=== PATIENT | male | born 1940 | race Caucasian/White ===

== ENCOUNTER 2016-06-04 09:14 | Inpatient (IN) | payer MEDICARE ==
[~2016-06-04] VITALS: Ht 188 cm; Wt 73.6 kg
[2016-06-04] VITALS (7 sets, daily range): BP systolic 103–126; BP diastolic 48–80
--- NOTE | ~2016-06-04 | PR ---
[place], [place] PROGRESS NOTE NAME: ASHLEE REINOSO JR UNIT #: [id number] ROOM: 519 DOCTOR: GIDEON PLASENCIA MD BIRTHDATE: [birth year] DOS: 06/06/2016 PULMONARY PROGRESS NOTE SUBJECTIVE: He has been noted comfortable at this time. He has been assessed by the Cardiology Services and his AICD has been interrogated. From the respiratory standpoint, the patient has not been noted with any symptoms of chest pain or any abdominal pain. OBJECTIVE: VITAL SIGNS: For the patient which has been recorded shows the temperature of the patient noted as normal, respiratory rate 20, heart rate 68 and blood pressure 128/81. HEENT: Showed no acute change. NECK: Supple. CARDIOVASCULAR: S1, S2 is audible. LUNGS: Noted without any wheezing or crackles at the present time. ABDOMEN: Soft, nontender. LABORATORY DATA: Blood culture from the 2nd of this month for this patient from the Emergency Room showed no bacterial growth. Urine culture of the patient was reported with findings of Citrobacter freundii heavy growth. IMPRESSION: 1. Incidental finding of pulmonary nodule which has been present noncalcified in the right lower lobe for this patient as well as discoid atelectasis for the patient in the right minor fissure as well. Possibility of malignancy has been considered as well. 2. The patient with history of cardiomyopathy, automatic implantable cardioverter-defibrillator in place with recent discharge, being interrogated by the Cardiology Services. PLAN OF TREATMENT: Continuation of the patient's current plan of management at this time without any changes. Usual care. Supportive therapy as a plan of care. [place], [place] PROGRESS NOTE NAME: ASHLEE REINOSO JR UNIT #: [id number] ROOM: 519 DOCTOR: GIDEON PLASENCIA MD BIRTHDATE: [birth year] GIDEON THURMAN MD CM:PNTRANS [id number] GIDEON JIMENEZ MD 06/06/16 1425 interface
--- NOTE | ~2016-06-04 | CON ---
[place], [place] REPORT OF CONSULTATION NAME: ASHLEE REINOSO JR [facility] #: [id number] UNIT #: [id number] ROOM: 519 DOCTOR: GIDEON PLASENCIA MD BIRTHDATE: [birth year] DOS: 06/05/2016 PULMONARY CONSULTATION, EVALUATION AND MANAGEMENT REASON FOR CONSULTATION: The consultation was done for assessment of the recent findings noted with abnormal pulmonary nodule in the CT scan of the chest on this hospitalization. HISTORY OF PRESENT ILLNESS: This is a 76-year-old white male who has been admitted to the hospital under the hospice care for this patient on 06/04/2016. The patient stated that he had been noted discharge from the AICD at home in the morning prior to admission to the hospital. He has been feeling ill at this time. The patient denies any symptoms of chest pain. Denies symptoms of acute shortness of breath. The patient denies symptoms of hemoptysis. He does have symptoms of nausea and chills, which occurred yesterday as well. REVIEW OF SYSTEMS: CONSTITUTIONAL: Fatigue and tiredness seemed to be improved. There were no symptoms of fever or chills at this time. EYES: Denies any burning, redness, or tenderness. EARS, NOSE, THROAT: Denies sore throat, hoarseness, otalgia, postnasal drainage. CARDIOVASCULAR SYSTEM: Denies anginal pain, edema or pain of the lower extremities or palpitation at the present time. GASTROINTESTINAL: Denies dysphagia, nausea, vomiting, diarrhea, abdominal pain, hematemesis, melena, dysphagia or any abnormal weight loss history. GENITOURINARY: Denies dysuria, suprapubic pain, hematuria. MUSCULOSKELETAL: Denies acute joint pain, redness, or tenderness. SKIN: Denies lesions or rashes. CENTRAL NERVOUS SYSTEM: Denies dizziness, headache, diplopia or syncopal episodes. Remaining systems were reviewed with the patient, they were noted all negative. PAST MEDICAL HISTORY: 1. The patient was noted with previous hospitalization in December 2015 for the management of the chest pain, acute kidney injury for the patient with acute tubular necrosis and other medical problems. 2. History of known cardiac dysrhythmias, the patient AICD in place. 3. History of centrilobular emphysema. 4. Chronic atrial fibrillation. 5. Past history of hemorrhagic cystitis. 6. Essential hypertension. 7. Hyperlipidemia and hypertriglyceridemia. 8. Hypothyroidism. PAST SURGICAL HISTORY: The patient noted: 1. AICD insertion. 2. Hernia repair. [place], [place] REPORT OF CONSULTATION NAME: ASHLEE REINOSO JR [facility] #: [id number] UNIT #: [id number] ROOM: [facility] DOCTOR: GIDEON PLASENCIA MD BIRTHDATE: [birth year] SOCIAL HISTORY: The patient stated that he is . He was a nonsmoker lifetime, worked in for 25 years. The patient is and has 2 children. Denies history of alcohol or illicit drug use. FAMILY HISTORY: The patient was reported as father at the age of 60-year-old, complication of COPD. Mother at age 60-year-old from complication of unknown cancer. MEDICATIONS: Current administered medications noted use of multivitamin, Lovenox for DVT prophylaxis, Synthroid, Protonix, metoprolol succinate, Lipitor, finasteride, Flomax, magnesium oxide, IV Rocephin, and other p.r.n. medication administration. DRUG ALLERGIES: Noted no known drug allergies. PHYSICAL EXAMINATION: GENERAL: This is a 76-year-old male who has been currently noted to be awake and alert without any distress. Height of 6 feet 2 inches, weight of 162 pounds. VITAL SIGNS: For the patient which has been recorded showed the temperature noted normal, respirations 20, heart rate of 73, blood pressure is 120/76-113/70. The pulse oxygen saturation for the patient recorded as saturation 97% on room air was recorded. HEENT: Shows head was atraumatic. Eyes: No icterus. Neck was supple. Oral mucosa was moist. CARDIOVASCULAR SYSTEM: S1, S2 is audible. LUNGS: The patient was noted clear for any abnormal wheezing or crackles. The air entry was noted normal. ABDOMEN: Soft, flat, nontender, bowel sounds present. CENTRAL NERVOUS SYSTEM: The patient's cranial nerves 2-12 intact. No focal deficit. MUSCULOSKELETAL: Does not show any acute deformities. SKIN: Showed no lesions or rashes. CENTRAL NERVOUS SYSTEM: Cranial nerves 2-12 intact. No focal deficits. LABORATORY DATA: Lactic acid yesterday was noted normal on admission. CBC on the day of admission was noted as grossly normal. The PT/INR was noted normal at 1.1 yesterday. CMP of patient 06/04/2016 for the patient admission shows glucose 120, BUN and creatinine was normal. AST and ALT was mildly elevated with mild elevation of total bilirubin is 1.2 and alkaline phosphatase of 164. CK-MB, troponin additional 3 sets for the patient was done yesterday and this morning was all noted as normal. CBC this morning, hemoglobin 11.4, hematocrit 34.9, WBC count was noted normal, platelet count mildly decreased at 129,000. CMP of the patient this morning normal BUN and creatinine and the electrolytes for this patient at this time. The liver function tests were also noted improving with normal ALT today. AST was decreased to 47, alkaline phosphatase also decreased to 135. TSH level was noted as normal. The PT, PTT for the patient this morning was noted as normal. RADIOLOGY DATA: Review of the radiology data for this patient. The chest x-ray [place], [place] REPORT OF CONSULTATION NAME: [facility] [id number] UNIT #: [id number] ROOM: [facility] DOCTOR: CUCA [facility]Z [facility] B[facility] [birth year] of the patient that was reviewed for the patient done on 01/26/2016 only 1 view taken for this patient at the time does not appear to have any acute pulmonary abnormalities. Small giuseppe normal in the left upper lung was noted. The chest x-ray of the patient that was done on 06/04/2016 patient yesterday in the Emergency Room with 1 view done at that time, it shows evidence of irregular infiltration of the patient was suspected in the right mid lung for this patient with some pleural thickening. The patient had a CT scan of the chest, which was done without contrast for this patient on 06/04/2016, patient was personally reviewed as well shows noncalcified 2.5 x 1.4 cm nodule for the patient was visible. Evidence of possibility of discoid atelectasis or consolidation for the patient in the right minor fissure patient was also considered that corresponds to the previous findings on the chest x-ray which was done recently. IMPRESSION: 1. The patient will be currently admitted to the hospital with a discharge of the AICD for this patient with history of cardiac dysrhythmias yesterday. Acute generalized weakness and nausea the patient noted seemed to be resolved at this time. There were no ongoing acute respiratory symptoms of coughing, wheezing or chest pain. The patient was noted nonsmoker lifetime. 2. Incidental finding of pulmonary nodule the patient's right lower lobe 2 cm x 1.4 cm in size for this patient, etiology unclear. Certainly consideration of lung malignancy with further assessment to be conducted. 3. Finding of the right mid lung. The patient may be related to the area of atelectasis; however, malignancy, other etiology also remains in consideration as well with further future assessment. PLAN OF TREATMENT: From the pulmonary standpoint, once the patient gets the cardiac clearance could be discharged home to make an appointment in the office. The patient for further diagnostic workup with current pulmonary nodule. Initial assessment will be done with a PET scan for the patient based on that further assessment and intervention will be planned such as needle aspiration biopsy with CT guidance or other interventions. Usual care, other supportive therapy, plan of management and care. Continue further cardiac assessment and management. Supportive care. Usual treatment. Thanks for allowing me to participate in the care of this patient. GIDEON THURMAN MD CM:CONSTR:REPORT OF CONSULTATION 1112 06/05/16 1303 interface
--- NOTE | ~2016-06-04 | CON ---
[place], [place] REPORT OF CONSULTATION NAME[id number] #: [id number] ROOM: 519 DOCTOR: GALO WILLISYUMIKO BIRTHDATE: [birth year] DOS: 06/04/2016 CARDIOLOGY CONSULTATION REASON FOR CONSULTATION: ICD discharge and cardiomyopathy. CLINICAL HISTORY: The patient is a 76-year-old gentleman with history of nonischemic cardiomyopathy status post ICD, valvular heart disease, chronic kidney disease, came to the Emergency Room after his defibrillator went off. He was noted to have some shortness of breath in the morning and around 07:40, his defibrillator went off, but he did have some chest pain after defibrillator shocked him, but no exertional chest pain, palpitation, or dizziness. He did have some exertional dyspnea. No PND, no orthopnea. No edema. No syncope. No fever and chills. No cough. No tingling, numbness or weakness. No blurred vision or double vision. No nausea. REVIEW OF SYSTEMS: Review of the 8 systems negative except as mentioned above. PAST MEDICAL HISTORY: 1. Cardiomyopathy. 2. Status post ICD. 3. Valvular heart disease. 4. LV hypertrophy. 5. Anemia. PAST SURGICAL HISTORY: History of ICD implant and hernia repair. SOCIAL HISTORY: The patient does drink alcohol socially, but no illicit drugs, no tobacco smoking. FAMILY HISTORY: Father in his 60s from COPD. Mother in her 60s from cancer. ALLERGIES: Noted. HOME MEDICATIONS AND CURRENT MEDICATIONS: Noted. PHYSICAL EXAMINATION: VITAL SIGNS: Blood pressure 103/65, pulse 87, respiratory rate is 20. GENERAL: Alert, comfortable, in no acute distress. HEAD AND NECK: Pupils are round and equal. No jaundice. Tongue was moist and pharynx was clear. NECK: Supple, no distended neck veins, no carotid bruit. CHEST: Chest wall symmetrical, nontender. LUNGS: Few scattered rhonchi, but good air entry bilaterally. HEART: Regular rhythm, no S3, grade 1/6 systolic murmur. ABDOMEN: Benign, nontender. Bowel sounds normal. EXTREMITIES: Showed no edema. Distal pulses are palpable. SKIN: Warm and dry. No cyanosis, no clubbing. [place], [place] REPORT OF CONSULTATION NAME: ASHLEE REINOSO JR [facility] #: [id number] UNIT #: [id number] ROOM: [facility] DOCTOR: GALO WILLIS,YUMIKO BIRTHDATE: [birth year] REVIEW OF THE DIAGNOSTIC TESTS: EKG showed sinus tachycardia with PACs. His labs reviewed. Potassium 4.0, magnesium 2.1. Hemoglobin 11.8. Creatinine 1.19. TSH 1.18. IMPRESSION: 1. Status post ICD discharge. 2. Severe left ventricular dysfunction, ejection fraction 25%. 3. Status post ICD implant, [employer] in September 2015. 4. Valvular heart disease, tricuspid regurgitation. 5. Mild anemia. RECOMMENDATIONS: 1. He denied any chest pain or shortness of breath. 2. Continue his metoprolol as well as statins. 3. If his blood pressure is stable, I would recommend adding either Entresto or JACQUE medications. 4. His potassium and magnesium levels are normal. 5. Interrogate his ICD to make it was discharged appropriately. 6. Continue rest of his medications. 7. If he has no further ICD discharges and if he is stable, he should be discharged home tomorrow. YUMIKO ROSENTHAL MD CM:CONSTR:REPORT OF CONSULTATION 2145 06/05/16 0025 interface
[~2016-06-04 09:14] MED LIST: 8 HOUR650 MG PO; ASPIRIN81 M1 PO; ATENOLOL50 MG PO; ATHLETIC FOOT C30 GM TP; BACTROBAN OINT22 GM PO; BIOTENE MOIST44.3 ML PO; CALCIUM1 CAP PO; DOXYCYCLINE100 M3 PO; ELIQUIS5 M1 PO; FEROSUL220 MG/51 PO; FLOMAX0.4 MG PO; KLOR-CON 1010 ME1 PO; LASIX40 MG PO; LEVOFLOXACIN500 MG PO; LIPITOR40 MG PO; LISINOPRIL5 MG PO; MAGNESIUM400 MG PO; METOPROLOL SUCC50 M1 PO; MEXILETINE HCL200 MG PO; MOTRIN800 MG PO; MULTI-DAY VITA1 EACH PO; MULTIPLE VITAMI1 CAP PO; MYLICON, MYLANT80 MG PO; PACERONE200 MG PO; PACERONE400 MG PO; PROSCAR5 M1 PO; PROTONIX IV40 MG PO; RANITIDINE300 MG PO; SYNTHROID,LEVO75 MCG PO; TOPROL XL100 MG PO; VICODIN 500 MG-1 TAB PO; ZANTAC 150150 MG PO; ZANTAC 300300 MG PO
[2016-06-04] MEDS ORDERED: METOPROLOL SUC100 M1 PO (09:25)
[2016-06-04 09:50] LABS: BASO % 0.1 % (0.0-1.0); HEMATOCRIT 39.9 % (42.0-52.0); HEMOGLOBIN 13.1 g/dl (14.0-18.0); LYMPH # 0.9 10*3/uL (1.3-4.4); LYMPH % 11.7 % (27.0-41.0); MEAN CELL VOLUME 85.1 fl (80.0-94.0); MEAN CORPUSCULAR HGB 27.9 pg (27.0-31.0); MEAN CORPUSCULAR HGB CONC 32.8 g/dl (33.0-37.0); MEAN PLATELET VOLUME 9.8 fl (9.6-12.3); MONO # 0.5 10*3/uL (0.1-1.0); MONO % 6.8 % (3.0-9.0); NEUT # 6.2 10*3/uL (2.3-7.9); NEUT % 81.1 % (47.0-73.0); PLATELET COUNT AUTOMATED 161 10*3/uL (130-400); RED BLOOD COUNT 4.69 10*6/uL (4.50-5.90); WHITE BLOOD COUNT 7.6 10*3/uL (4.8-10.8)
[2016-06-04 09:58] LABS: INTERNATIONAL NORM RATIO 1.1 (2.0-3.5); PROTHROMBIN TIME 11.2 SECONDS (9.0-12.4)
[2016-06-04 10:07] LABS: ALBUMIN 3.3 gm/dl (3.1-4.5); ALKALINE PHOSPHATASE 164 U/L (45-117); BILIRUBIN, TOTAL 1.2 mg/dl (0.2-1.0); BUN 24 mg/dl (7-24); CARBON DIOXIDE 26 mmol/L (21-32); CHLORIDE 104 mmol/L (98-107); EST GLOM FILT AFRICAN AMERICAN > 60 ml/min; GLUCOSE 120 mg/dL (65-99); MAGNESIUM 1.7 mg/dL (1.5-2.1); POTASSIUM 3.9 mmol/L (3.5-5.1); SGOT/AST 66 IU/L (3-35); SGPT/ALT 94 U/L (12-78); SODIUM 139 mmol/L (136-145); TOTAL PROTEIN 8.5 gm/dL (6.4-8.2)
[2016-06-04 10:08] LABS: TROPONIN I < 0.015 ng/ml (<0.045)
[2016-06-04 11:08] LABS: BILIRUBIN NEGATIVE (NEGATIVE); BLOOD 2+ (NEGATIVE); CLARITY SL CLOUDY (CLEAR); COLOR YELLOW (YELLOW); GLUCOSE NEGATIVE (NEGATIVE); KETONE TRACE (NEGATIVE); LEUKO ESTERASE 1+ (NEGATIVE); NITRITE POSITIVE (NEGATIVE); PROTEIN NEGATIVE (NEGATIVE); SPECIFIC GRAVITY 1.025 (1.005-1.030)
[2016-06-04 11:14] LABS: BACTERIA 3+; RBC 21-30 rbc/hpf (0-2); URINE REFLEX COMMENT YES (NO); WBC 41-50 wbc/hpf (0-5)
[2016-06-04 12:21] LABS: CKMB 0.7 ng/ml (0.5-3.6); TROPONIN I 0.015 ng/ml (<0.045)
[2016-06-04 18:03] LABS: CKMB 0.6 ng/ml (0.5-3.6); CPK 37 U/L (39-308)
[2016-06-04 18:07] LABS: TROPONIN I < 0.015 ng/ml (<0.045)
[2016-06-05] VITALS: BP 113/70
[2016-06-05 00:44] LABS: CKMB < 0.5 ng/ml (0.5-3.6); CPK 40 U/L (39-308); TROPONIN I < 0.015 ng/ml (<0.045)
[2016-06-05 05:57] LABS: BASO % 0.2 % (0.0-1.0); EOS % 0.4 % (1.0-4.0); HEMATOCRIT 34.9 % (42.0-52.0); HEMOGLOBIN 11.4 g/dl (14.0-18.0); LYMPH # 1.9 10*3/uL (1.3-4.4); LYMPH % 33.8 % (27.0-41.0); MEAN CELL VOLUME 86.2 fl (80.0-94.0); MEAN CORPUSCULAR HGB 28.1 pg (27.0-31.0); MEAN CORPUSCULAR HGB CONC 32.7 g/dl (33.0-37.0); MEAN PLATELET VOLUME 9.7 fl (9.6-12.3); MONO # 0.8 10*3/uL (0.1-1.0); NEUT # 2.9 10*3/uL (2.3-7.9); NEUT % 51.4 % (47.0-73.0); PLATELET COUNT AUTOMATED 129 10*3/uL (130-400); RED BLOOD COUNT 4.05 10*6/uL (4.50-5.90); RED CELL DISTRI WIDTH 15.3 % (0-14.5); WHITE BLOOD COUNT 5.6 10*3/uL (4.8-10.8)
[2016-06-05 06:29] LABS: ALBUMIN 2.8 gm/dl (3.1-4.5); ALKALINE PHOSPHATASE 135 U/L (45-117); BILIRUBIN, TOTAL 0.8 mg/dl (0.2-1.0); BUN 22 mg/dl (7-24); CARBON DIOXIDE 29 mmol/L (21-32); CHLORIDE 105 mmol/L (98-107); CHOLESTEROL 85 mg/dL (<200); EST GLOM FILT AFRICAN AMERICAN > 60 ml/min; GLUCOSE 91 mg/dL (65-99); MAGNESIUM 1.9 mg/dL (1.5-2.1); PHOSPHOROUS 2.8 mg/dL (2.5-4.9); POTASSIUM 3.9 mmol/L (3.5-5.1); SGOT/AST 47 IU/L (3-35); SGPT/ALT 70 U/L (12-78); SODIUM 141 mmol/L (136-145); TOTAL PROTEIN 7.3 gm/dL (6.4-8.2); TRIGLYCERIDES 69 mg/dl (<150); VLDL CHOLESTEROL 14 mg/dL (6-40)
[2016-06-05 06:35] LABS: FREE T4 1.22 ng/dl (0.76-1.46); HDL CHOLESTEROL 34 mg/dl (40-60); LDL CHOLESTEROL 37 mg/dL (9-159)
[2016-06-05 06:40] LABS: INTERNATIONAL NORM RATIO 1.1 (2.0-3.5); PROTHROMBIN TIME 11.4 SECONDS (9.0-12.4)
[2016-06-05 07:15] LABS: HEMOGLOBIN A1c 4.6 % (4.8-5.6)
[2016-06-05 07:20] LABS: FOLIC ACID 8.24 ng/mL (>5.38)
[2016-06-05 08:00] VITALS: BP 120/76
[2016-06-05 12:00] VITALS: BP 101/68
[2016-06-05 16:00] VITALS: BP 108/72
[2016-06-05 20:00] VITALS: BP 120/76
[2016-06-06] VITALS: BP 128/80
[2016-06-06 08:00] VITALS: BP 128/81
[2016-06-06 12:00] VITALS: BP 122/65
[2016-06-06] MEDS ORDERED: ASPIRIN ADULT L81 M2 PO (13:36)
[2016-06-06] MEDS ORDERED: LISINOPRIL2.5 MG PO (13:36)
[2016-06-06] MEDS ORDERED: CIPRO500 MG PO (13:38)
== END 2016-06-06 15:09 | disposition home or self-care (01) | DRG 690 ==
LOC: ED 09:14 → EDHOLD 10:54 → 5E 10:54
PROVIDERS: Family Medicine; Nurse Practitioner Family
DX: N30.01 Acute cystitis with hematuria (principal); J44.9 Chronic obstructive pulmonary disease, unspecified; I48.0 Paroxysmal atrial fibrillation; R06.00 Dyspnea, unspecified; E44.1 Mild protein-calorie malnutrition; I07.1 Rheumatic tricuspid insufficiency; R00.0 Tachycardia, unspecified; N18.3 Chronic kidney disease, stage 3 (moderate); R91.8 Other nonspecific abnormal finding of lung field; I12.9 Hypertensive chronic kidney disease with stage 1 through stage 4 chronic kidney disease, or unspecified chronic kidney disease; E78.1 Pure hyperglyceridemia; E78.5 Hyperlipidemia, unspecified; K21.9 Gastro-esophageal reflux disease without esophagitis; Z95.810 Presence of automatic (implantable) cardiac defibrillator; Z82.5 Family history of asthma and other chronic lower respiratory diseases; Z91.14 Patient's other noncompliance with medication regimen; Z80.9 Family history of malignant neoplasm, unspecified; Z82.49 Family history of ischemic heart disease and other diseases of the circulatory system; Z79.899 Other long term (current) drug therapy; Z68.20 Body mass index [BMI] 20.0-20.9, adult

== ENCOUNTER 2016-06-13 17:05 | Inpatient (IN) | payer MEDICARE ==
[~2016-06-13] VITALS: Ht 188 cm; Wt 89.4 kg
--- NOTE | ~2016-06-13 | PR ---
[place], [place] PROGRESS NOTE NAME: ASHLEE REINOSO JR UNIT #: [id number] ROOM: 530 DOCTOR: GIDEON PLASENCIA MD BIRTHDATE: [birth year] DOS: 06/16/2016 PULMONARY PROGRESS NOTE SUBJECTIVE: He has been noted with gradual resolution and improvement in the symptoms of chest pain on the left side. The patient has been noted with mild cough without any sputum expectoration. Denies symptoms of hemoptysis. OBJECTIVE: VITAL SIGNS: For the patient which have been recorded showed the temperature noted normal, respiratory rate 18, heart rate 65, blood pressure 122/72. Intake for the patient was 1700 mL, output 2250 mL. Pulse oxygen saturation on room air was noted as 98% saturation. HEENT: Examination shows no acute change. NECK: Supple. CARDIOVASCULAR: S1, S2 audible. LUNGS: Noted without any wheezing. The crackles noted with decreased breath sounds in left lower lung. ABDOMEN: Soft, nontender. LABORATORY DATA: Blood culture from 06/04/2016 was described as budding yeast for the patient. Final identification was described as Abril glabrata for this patient in the first one and the other blood culture was noted as Streptococcus salivarius as well. The urine culture of the patient was noted as evidence of Enterococcus, noted penicillin sensitive species. Chest x-ray of the patient that was done yesterday was noted with evidence of infiltration and consolidation noted in the left lower lobe. IMPRESSION: 1. The patient with incidental finding of right lower lobe pulmonary nodule, currently admitted to the hospital, being treated for acute pneumonia. 2. Isolation of gram-positive organisms as well as budding yeast were noted with past cultures on previous hospitalization from 06/04/2016. At this time, significance was unknown. PLAN OF TREATMENT: Continue current medical management of acute pneumonia. Consider consultation from Infectious Disease specialist and their recommendation, possibility of medical management of Abril glabrata as it has been isolated in the blood, would not be considered contamination. Other supportive therapy, plan of management, usual care. All other supportive plan of therapy and care plan. [place], [place] PROGRESS NOTE NAME: ASHLEE REINOSO JR UNIT #: [id number] ROOM: 530 DOCTOR: GIDEON PLASENCIA MD BIRTHDATE: [birth year] GIDEON THURMAN MD CM:MICHEL 09 2 GIDEON JIMENEZ MD 06/17/164 interface
--- NOTE | ~2016-06-13 | PR ---
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 The patient did have an ICD placed after presenting with syncopal episodes of paroxysmal atrial fibrillation and ventricular tachycardia in September 2015. At that time, he was treated with amiodarone, mexiletine, and Eliquis for arrhythmia prophylaxis and stroke prophylaxis. He was lost to follow up and stopped taking the amiodarone, mexiletine and Eliquis. He presented to the hospital on this occasion with left-sided chest pain, which is most likely due to a community-acquired pneumonia. On this hospitalization, his echocardiogram does show a significant improvement in his left ventricular function. His ejection fraction is now 65% with normal segmental wall motion. PHYSICAL EXAMINATION: VITAL SIGNS: Today, his pulse is 66 and regular, blood pressure is 122/72. He is afebrile. NECK: Supple. He has no jugular distention. Carotids are full. LUNGS: Respirations are unlabored. He has decreased breath sounds and crackles at the left base, but his lungs are otherwise clear. HEART: Has a regular rhythm with an S4 gallop. ABDOMEN: Soft. EXTREMITIES: Showed no edema. His rhythms have stabilized since being placed back on amiodarone and he shows no signs of heart failure. I did increase his JACQUE inhibitor to help with his guideline directed medical therapies. From a cardiac perspective, he probably could go home on his current medical regimen at any time. I did decrease his amiodarone to 200 mg b.i.d. and in a month this will need to be decreased once more to 200 mg daily. He certainly needs follow up with his quality control analyst in [place]. I thank the hospitalist service for asking our advice regarding the patient's care. [place], [place] PROGRESS NOTE NAME: RENCAILIN ASHLEE WHITTEN UNIT #: [id number] ROOM: 530 DOCTOR: DARLIN SALES MD BIRTHDATE: [birth year] DARLIN SALES MD CM:PNTRANS 9 02 DARLIN SALES MD 06/16/16 2304 interface
--- NOTE | ~2016-06-13 | CON ---
[place], [place] REPORT OF CONSULTATION NAME: ASHLEE REINOSO JR [facility] #: [id number] UNIT #: [id number] ROOM: 530 DOCTOR: DARLIN SALES MD BIRTHDATE: [birth year] DOS: 06/14/2016 CARDIOLOGY CONSULTATION The patient was seen. REASON FOR CONSULTATION: Left chest pain, frequent PVCs, dilated cardiomyopathy. HISTORY OF PRESENT ILLNESS: The patient is a 76-year-old man who I initially met when he presented to the hospital in September 2015 with syncopal episodes. While in the hospital, he was found to have atrial fibrillation with a rapid ventricular response as well as periods of monomorphic ventricular tachycardia. He was transferred to the [facility] where cardiac catheterization showed normal coronary arteries and an ejection fraction of 15%. He was felt to have a dilated nonischemic cardiomyopathy. His rhythms were very difficult to control despite lidocaine, diltiazem, beta jamar, amiodarone, and mexiletine. He eventually did receive an ICD and was discharged to home on amiodarone and mexiletine. He was seen in followup by Dr. Alexandra on one occasion and by Dr. Saucedo on one occasion, but was lost to follow up after 11/16/2015. At that time, the patient was on amiodarone, mexiletine, and Eliquis for stroke prophylaxis. He was next seen when he was hospitalized at the [facility] early June 2016 with an ICD discharge. At the time of that admission, he was no longer on amiodarone, mexiletine, or anticoagulation therapy as best I can tell. He was stabilized and discharged for outpatient followup, but presents now with left-sided chest pain and possible pneumonia. The patient does not think that his ICD has discharged again, although the monitor does show that he has very frequent PVCs. His underlying rhythm remains sinus. An echocardiogram done on 10/14/2015 showed a severely enlarged left ventricle with an ejection fraction of about 25%. ICD interrogation did show multiple episodes of antitachycardia pacing and occasional ICD discharges. Currently, the patient feels well, but did have left-sided chest pain prior to admission, which appears to have been due to a pulmonary infection. PAST MEDICAL HISTORY: 1. Hyperlipidemia. 2. Hypertension. 3. Gastroesophageal reflux disease. 4. History of obstructive lung disease due to occupational pulmonary exposure when he worked in the [employer]. 5. Hospitalization December 2014 with near syncope, felt to be due to dehydration. No further workup was done at that time. 6. Hospitalization 09/03/2015 with lightheadedness and multiple syncopal episodes along with peripheral edema. The patient was found to have new onset atrial fibrillation. 7. History of wide complex tachycardia during hospitalization September 2015 due to monomorphic ventricular tachycardia. 8. Evaluation at [facility] in [place] including catheterization demonstrated no coronary artery disease, but a dilated hypokinetic left [place], [place] REPORT OF CONSULTATION NAME: ASHLEE REINOSO JR UNIT #: [id number] ROOM: [facility] DOCTOR: DARLIN SALES MD BIRTHDATE: [birth year] ventricle with an ejection fraction of about 15%. The patient was felt to have a nonischemic cardiomyopathy. Catheterization done 09/07/2015. 9. Placement of dual chamber Medtronic ICD during hospitalization September 2015. 10. Medical noncompliance. MEDICATIONS: Prior to the current admission: Aspirin 81 mg daily, atorvastatin 40 mg h.s., finasteride 5 mg at h.s., levothyroxine 75 mcg daily, lisinopril 2.5 mg daily, magnesium oxide 400 mg b.i.d., metoprolol succinate 100 mg b.i.d., multivitamin 1 daily, ranitidine 150 mg b.i.d. and tamsulosin 0.8 mg at h.s. ALLERGIES: THE PATIENT LISTS AN ALLERGY TO CIPROFLOXACIN. REVIEW OF SYSTEMS: The patient denies diplopia or loss of vision. He denies focal weakness, but has been tired. He has not had any recent syncopal episodes. He does have dyspnea with modest exertion. He denies cough, wheezing, fevers or chills today, but did have a fever last night. He did have left-sided pleuritic chest pain, which has improved in the last 24 hours. He denies hemoptysis or hematemesis. He denies nausea or vomiting or change in his appetite. He denies blood in his stools or urine. He has not had any peripheral edema or skin rashes. The remainder of the review of systems is negative except as noted above. FAMILY HISTORY: Negative for early coronary disease. SOCIAL HISTORY: The patient is . He does not smoke or consume any alcohol. He is retired from the [employer]. PHYSICAL EXAMINATION: GENERAL: The patient is a well-nourished white male who is awake, alert and oriented. VITAL SIGNS: Pulse is 88 with frequent premature ventricular contractions. Blood pressure is 104/56. He weighs 89.4 kilograms with a body mass index of 25.3. HEENT: Normocephalic, atraumatic. Extraocular muscles are intact. Sclerae are clear. Pupils are equal, round and react to light. The oral mucosa is moist. Tongue is midline. NECK: Supple. He has mild jugular distention with mild hepatojugular reflux. Carotids are full. I heard no bruits. He had no neck or supraclavicular masses. No thyromegaly. LUNGS: Respirations are unlabored at rest. He has decreased breath sounds at the bases, but no wheezes or rales. He does have a few crackles at the left base. CARDIOVASCULAR: His heart has a regular rhythm with frequent premature beats. He has a fourth heart sound and a third heart sound. There is a grade 2/6 holosystolic murmur at the apex. No diastolic murmurs are present. The PMI was somewhat displaced laterally. There is no precordial heave, lift or thrill. ABDOMEN: Soft and normally active without masses, organomegaly or bruits. EXTREMITIES: Showed no edema. Peripheral pulses were palpable in the feet. LABORATORY DATA: His most recent echocardiogram, 10/14/2015 showed a severely [place], [place] REPORT OF CONSULTATION NAME: [id number] UNIT #: [id number] ROOM: [facility] DOCTOR: DARLIN SALES MD BIRTHDATE: [birth year] dilated left ventricle with severe left ventricular systolic dysfunction, estimated ejection fraction 25%, moderate concentric left ventricular hypertrophy, at least moderate tricuspid insufficiency with mildly elevated right ventricular systolic pressures. Trace mitral insufficiency. IMPRESSIONS: 1. Dilated nonischemic cardiomyopathy. 2. Paroxysmal atrial fibrillation, CHADS-VASc score at least 4. 3. Sustained ventricular tachycardia with syncopal episodes. 4. Status post Medtronic implantable cardioverter-defibrillator placement 09/17/2015. 5. Cardiac catheterization 09/07/2015 showed normal coronary anatomy without any evidence of significant coronary artery disease. A dilated left ventricular cavity noted with very poor left ventricular systolic function consistent with nonischemic cardiomyopathy. 6. Chronic systolic congestive heart failure. 7. Recurrent episodes of ventricular tachycardia resulting in implantable cardioverter-defibrillator discharge. 8. Recurrent supraventricular tachycardias. 9. Medication noncompliance. PLAN: The patient should be treated with guideline directed medical therapy. Thus far, he is on a large dose of beta jamar, but continues to have an elevated heart rate in the range of 80-100. He is only on a small dose of JACQUE inhibitor because of low blood pressure. This should be titrated up gradually as tolerated by his blood pressure. In addition, the patient should be on systemic anticoagulation given his history of atrial fibrillation and his risk of stroke. He should also be on antiarrhythmic therapy since recurrent ICD discharges are not ultimately in his best interest. I will be resuming several of these medications while he is in the hospital. We will consider starting him on ivabradine for heart rate control if he remains relatively tachycardic on beta jamar alone. 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 We thank the hospitalist group for asking our advice regarding his care. DARLIN SALES MD CM:CONSTR:REPORT OF CONSULTATION 1456 06/15/16 0342 interface
--- NOTE | ~2016-06-13 | EKG ---
[place], [place] ELECTROCARDIOGRAM REPORT NAME: ASHLEE REINOSO JR UNIT #: [id number] ROOM: [facility] DOCTOR: DARLIN SALES MD BIRTHDATE: [birth year] DOS: 06/13/2016 TIME: 17:12 in evening. FINDINGS: 1. Sinus tachycardia with a rate of 83. 2. Left axis deviation with left anterior fascicular block. 3. Occasional PVC. 4. Poor precordial R wave progression. 5. Abnormal electrocardiogram. DARLIN SALES MD CM:EKGRPT:ELECTROCARDIOGRAM REPORT 02 51 DARLIN SALES MD
--- NOTE | ~2016-06-13 | CON ---
[employer], [place] REPORT OF CONSULTATION NAME: ASHLEE REINOSO JR [facility] #: [id number] UNIT #: [id number] ROOM: 530 DOCTOR: GIDEON PLASENCIA MD BIRTHDATE: [birth year] DOS: 06/15/2016 REASON FOR CONSULTATION: Consultation was done for the patient for assessment of the current left-sided chest pain. HISTORY OF PRESENT ILLNESS: This is a 76-year-old male for this patient who has been noted with past incidental finding of right lower lobe and right middle lobe pulmonary nodule. The patient was admitted to the hospital recently, noted with urinary tract infection, also noted with a discharge of the AICD. The patient has had been managed and discharged home. He does have a followup appointment coming up in the office for further assessment of pulmonary nodules. The patient was admitted to the hospital as he developed symptoms of acute pain for the patient, which has been present for the patient couple of hours prior to admission to the hospital. The patient was noted gradually worse, noted on the scale of 1-10 up to 9. The pain was described to be sharp, radiating to the left shoulder. The patient denies any chest trauma for this patient with the current chest pain. There were no symptoms of hemoptysis. REVIEW OF SYSTEMS: CONSTITUTIONAL SYMPTOMS: Complaining of some fatigue and tiredness. Denies symptoms of fever or chills described. The patient stated that she has awakened this morning, noted with diaphoresis for the patient this morning, at night as well. EARS, NOSE, THROAT SYMPTOMS: Denies sore throat, hoarseness, otalgia, postnasal drainage. CARDIOVASCULAR: Denies anginal pain, edema of the lower extremities, or any symptoms of palpitations. GASTROINTESTINAL SYMPTOMS: Denies dysphagia, nausea, vomiting, diarrhea, abdominal pain, hematemesis, melena, hematochezia, dysphagia, or any abnormal weight loss history. GENITOURINARY SYMPTOMS: Complaining of burning upon urination for the patient with dysuria and increased urinary frequency. There were no symptoms of hematuria. SKIN: Denies lesions or rashes. MUSCULOSKELETAL: Denies acute joint pain, redness, or tenderness. CENTRAL NERVOUS SYSTEM: Denies dizziness, headache, diplopia, or syncopal episodes. Remaining systems were reviewed with the patient, they were noted all negative. PAST MEDICAL HISTORY: History was known as: 1. Centrilobular emphysema. 2. A 1.4 x 2 cm nodule, pleural base for the patient in the right lower lobe as well as area of either atelectasis or nodule noted in the area of the right minor fissure. 3. History of chronic atrial fibrillation. 4. Cardiac dysrhythmias with AICD in place. 5. Essential hypertension. 6. Mixed hyperlipidemia. 7. Hypothyroidism. [employer], [place] REPORT OF CONSULTATION NAME: ASHLEE REINOSO JR UNIT #: [id number] ROOM: [facility] DOCTOR: CUCA JIMENEZ MD,GIDEON BIRTHDATE: [birth year] PAST SURGICAL HISTORY: 1. Noted as AICD insertion. 2. Hernia repair. SOCIAL HISTORY: The patient is . He lives at home. Denies any history of alcohol use or any illicit drug use. He was noted nonsmoker lifetime. 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 FAMILY HISTORY: For the patient was reported as father at the age of _[id number], complication of COPD. Mother at age 60-year-old for unknown cancer. MEDICATIONS: Current administered medications for the patient were noted use of lisinopril, Xarelto, amiodarone, Mucinex, DuoNeb, multivitamin, levothyroxine, Lipitor, famotidine, finasteride, Flomax, IV vancomycin, cefepime, and other p.r.n. medications administration. DRUG ALLERGIES: NOTED AN ALLERGY TO CIPROFLOXACIN. PHYSICAL EXAMINATION: GENERAL: This is a 76-year-old male who has been currently noted comfortable at this time, sitting on his bed without any acute distress at the time of the assessment. Height for the patient recorded on the current admission with height of 6 feet 2 inches, weight of 197 pounds, BMI 25.2. VITAL SIGNS: For the patient which has been recorded showed the temperature noted as 99.2 degrees Fahrenheit, normal temperature, respiratory rate 18-20, heart rate 68-62, blood pressure 107/58-146/84. Pulse oxygen saturation on room air was noted 97% saturation. HEENT: Examination shows head was atraumatic. Eyes were nonicterus. CARDIOVASCULAR: S1, S2 is audible. LUNGS: Examination of lungs for this patient was noted with mild basilar crackles. There was no wheezing. ABDOMEN: Flat, soft, nontender. Bowel sounds present. EXTREMITIES: Shows no edema, clubbing, or cyanosis. MUSCULOSKELETAL: Does not show any obvious deformities. CENTRAL NERVOUS SYSTEM: Cranial nerves 2-12 intact. LABORATORY DATA: Lactic acid on this patient that was done on 06/13/2016 was noted as normal. The CBC of patient on 06/13/2016 on admission noted the WBC count 7.4, hemoglobin 11.3, hematocrit 34.0, platelet count was normal. PT/PTT of patient yesterday was normal. CMP 06/13/2016, BUN 31, creatinine was normal. Remaining LFTs were normal. CK-MB, troponin of the patient, which has been done to assess the patient on the and were noted normal troponin and the patient's CK. The CBC of patient that was done yesterday for the patient shows WBC count was normal, hemoglobin 11.2, hematocrit 34.7, platelet count of 180,000. CMP of the patient that was done was noted normal BUN and creatinine. The CBC for the patient that was done this morning was noted mild anemia, otherwise remains normal. CMP of the patient this morning was noted as normal. Albumin 2.8. [employer], [place] REPORT OF CONSULTATION NAME: [id number] UNIT #: [id number] ROOM: [facility] DOCTOR: GIDEON PLASENCIA MD BIRTHDATE: [birth year] Chest x-ray, only 1 view, which was done for patient 06/13/2016 for the patient was personally reviewed with the patient shows left area of basilar atelectasis with infiltration. IMPRESSION: 1. The patient has been currently noted to be admitted to the hospital with acute left lower lobe pneumonia for this patient causing the current pleuritic chest pain, being treated with antibiotics. 2. The patient with centrilobular emphysema without any evidence of acute exacerbation. 3. Incidental finding of recent pulmonary nodules for this patient noted on the right side which requires further assessment as an outpatient. 4. The patient with previous history of atrial fibrillation, anticoagulation for this patient as well. PLAN OF TREATMENT: Continue the antibiotic. Obtain a chest x-ray for the patient, PA and lateral view. Also, obtain the sputum for Gram stain and culture. Other supportive therapy, plan and management as well. Usual care. Further treatment changes will be done based on the progression of the illness. A PA and lateral chest x-ray will be done this morning for this patient to assess the current abnormality progression as the left lower lobe pneumonia. Thanks for allowing me to participate in the care of this patient. GIDEON THURMAN MD CM:CONSTR:REPORT OF CONSULTATION 1318 06/16/16 0944 interface
--- NOTE | ~2016-06-13 | PR ---
[place], [place] PROGRESS NOTE NAME: ASHLEE REINOSO JR [facility] #: [id number] UNIT #: [id number] ROOM: 530 DOCTOR: DARLIN SALSE MD BIRTHDATE: [birth year] DOS: 06/15/2016 CARDIOLOGY PROGRESS NOTE SUBJECTIVE: The patient was seen at his bedside today 06/15/2016 for followup of his dilated nonischemic cardiomyopathy, atrial and ventricular arrhythmias and chronic systolic congestive heart failure. He presented to the hospital on this occasion with left-sided chest pain, most likely that was due to left lower lobe pneumonia. As noted in my initial consult, he initially presented with heart failure, paroxysmal atrial fibrillation and wide complex tachycardia consistent with monomorphic ventricular tachycardia along with syncopal episodes. Catheterization demonstrated normal coronary arteries and an ejection fraction between 10 and 15%. He was treated with an ICD, a dual chamber device was utilized. He was then essentially lost to follow up. On his own, he stopped taking amiodarone, mexiletine, and Eliquis. He presents now with pneumonia, but no significant heart failure. I reviewed his echocardiogram from 06/14/2016. It was a technically difficult and limited study; however, left ventricular size, wall motion and overall systolic function appeared to be normal. He has mild concentric left ventricular hypertrophy. Ejection fraction was estimated at 65%. The right ventricle was poorly visualized, but appeared to be enlarged. His pacer leads were noted. He was started on amiodarone for rhythm control, along with rivaroxaban for stroke prophylaxis. PHYSICAL EXAMINATION: VITAL SIGNS: Today, his pulse is 68 and regular, blood pressure is 146/84. He is afebrile. He weighs 89.4 kg and has a body mass index of 25.3. NECK: Supple. He has no jugular distention or hepatojugular reflux. Carotids are full. LUNGS: Respirations are unlabored. He does have crackles at the left base. He has no presacral edema. HEART: Has a regular rhythm. Heart tones are distant, but he appears to have a fourth heart sound and no third heart sound. I did not hear significant murmur. He did not have any precordial heave, lift or thrill and the PMI did not seem to be displaced. ABDOMEN: Soft and normoactive. EXTREMITIES: Showed no edema. IMPRESSION: 1. Dilated nonischemic cardiomyopathy. This may have been related to a tachymyopathy which improved with management of his atrial fibrillation and ventricular tachycardia. 2. Paroxysmal atrial fibrillation with a CHADS-VASc score of 4 or greater. 3. Sustained ventricular tachycardia history with syncopal episodes. 4. Status post placement of a Medtronic cardioverter defibrillator on 09/17/2015, a dual chamber device was utilized. 5. Cardiac catheterization on 09/07/2015 showed normal coronary arteries [place], [place] PROGRESS NOTE NAME: ASHLEE REINOSO JR UNIT #: [id number] ROOM: 530 DOCTOR: DARLIN SALES MD BIRTHDATE: [birth year] without any significant evidence for coronary artery disease. 6. Chronic systolic congestive heart failure. 7. Medication noncompliance. PLAN: I will increase the patient's JACQUE inhibitor therapy today. He is already on a good dose of metoprolol succinate. We will continue his anticoagulation therapy and antiarrhythmic therapy. 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 I thank the hospitalist physicians for asking our advice regarding his care. DARLIN SALES MD CM:PNTRANS [id number] DARLIN SALES MD 06/15/16 2258 interface
--- NOTE | ~2016-06-13 | EKG ---
[place], [place] ELECTROCARDIOGRAM REPORT NAME: ASHLEE REINOSO JR UNIT #: [id number] ROOM: [facility] DOCTOR: DARLIN SALES MD BIRTHDATE: [birth year] DOS: 06/14/2016 TIME: 06:18 a.m. FINDINGS: 1. Sinus rhythm at rate of 85 with frequent premature ventricular contractions. 2. Nonspecific intraventricular conduction delay. 3. Nonspecific T-wave abnormalities. 4. Abnormal electrocardiogram. DARLIN SALES MD CM:EKGRPT:ELECTROCARDIOGRAM REPORT [id number] DARLIN SALES MD
[~2016-06-13 17:05] MED LIST changes: +ASPIRIN ADULT L81 M2 PO; +CIPRO500 MG PO; +LISINOPRIL2.5 MG PO; +METOPROLOL SUC100 M1 PO
[2016-06-13 17:12] VITALS: BP 174/103
[2016-06-13 17:39] LABS: BASO % 0.1 % (0.0-1.0); EOS # 0.1 10*3/uL (0.0-0.4); EOS % 0.9 % (1.0-4.0); HEMATOCRIT 34.8 % (42.0-52.0); HEMOGLOBIN 11.3 g/dl (14.0-18.0); LYMPH # 2.3 10*3/uL (1.3-4.4); LYMPH % 31.2 % (27.0-41.0); MEAN CELL VOLUME 86.4 fl (80.0-94.0); MEAN CORPUSCULAR HGB CONC 32.5 g/dl (33.0-37.0); MEAN PLATELET VOLUME 9.4 fl (9.6-12.3); MONO # 0.7 10*3/uL (0.1-1.0); MONO % 9.9 % (3.0-9.0); NEUT # 4.3 10*3/uL (2.3-7.9); NEUT % 57.6 % (47.0-73.0); PLATELET COUNT AUTOMATED 208 10*3/uL (130-400); RED BLOOD COUNT 4.03 10*6/uL (4.50-5.90); RED CELL DISTRI WIDTH 14.5 % (0-14.5); WHITE BLOOD COUNT 7.4 10*3/uL (4.8-10.8)
[2016-06-13 17:49] LABS: PROTHROMBIN TIME 10.7 SECONDS (9.0-12.4)
[2016-06-13 17:54] LABS: ALBUMIN 3.1 gm/dl (3.1-4.5); ALKALINE PHOSPHATASE 157 U/L (45-117); BILIRUBIN, TOTAL 0.6 mg/dl (0.2-1.0); BUN 31 mg/dl (7-24); C-REACTIVE PROTEIN 1.99 MG/DL (0-0.3); CARBON DIOXIDE 26 mmol/L (21-32); CHLORIDE 107 mmol/L (98-107); EST GLOM FILT AFRICAN AMERICAN > 60 ml/min; GLUCOSE 92 mg/dL (65-99); MAGNESIUM 2.1 mg/dL (1.5-2.1); POTASSIUM 4.9 mmol/L (3.5-5.1); SGOT/AST 33 IU/L (3-35); SGPT/ALT 45 U/L (12-78); SODIUM 140 mmol/L (136-145); TOTAL PROTEIN 8.4 gm/dL (6.4-8.2)
[2016-06-13 17:55] LABS: TROPONIN I < 0.015 ng/ml (<0.045)
[2016-06-13 18:22] VITALS: BP 129/73
[2016-06-13 19:10] VITALS: BP 150/79
[2016-06-13 20:00] VITALS: BP 150/79
[2016-06-13 22:09] LABS: BILIRUBIN NEGATIVE (NEGATIVE); BLOOD TRACE-INTACT (NEGATIVE); CLARITY CLEAR (CLEAR); COLOR YELLOW (YELLOW); GLUCOSE NEGATIVE (NEGATIVE); KETONE NEGATIVE (NEGATIVE); LEUKO ESTERASE 1+ (NEGATIVE); NITRITE NEGATIVE (NEGATIVE); PH 5.5 (5.0-9.0); PROTEIN NEGATIVE (NEGATIVE); UROBILINOGEN 0.2 E.U./dl (0.2-1.0)
[2016-06-13 22:15] LABS: YEAST TRACE
[2016-06-13 22:16] LABS: URINE REFLEX COMMENT YES (NO)
[2016-06-14] VITALS: BP 110/60
[2016-06-14 00:49] LABS: CPK 35 U/L (39-308)
[2016-06-14 00:51] LABS: CKMB < 0.5 ng/ml (0.5-3.6); TROPONIN I < 0.015 ng/ml (<0.045)
[2016-06-14 06:01] LABS: BASO % 0.2 % (0.0-1.0); EOS % 0.1 % (1.0-4.0); HEMATOCRIT 34.7 % (42.0-52.0); HEMOGLOBIN 11.2 g/dl (14.0-18.0); LYMPH # 0.7 10*3/uL (1.3-4.4); MEAN CORPUSCULAR HGB 28.1 pg (27.0-31.0); MEAN CORPUSCULAR HGB CONC 32.3 g/dl (33.0-37.0); MEAN PLATELET VOLUME 9.3 fl (9.6-12.3); MONO # 0.5 10*3/uL (0.1-1.0); MONO % 6.5 % (3.0-9.0); NEUT # 6.8 10*3/uL (2.3-7.9); NEUT % 84.1 % (47.0-73.0); PLATELET COUNT AUTOMATED 188 10*3/uL (130-400); RED BLOOD COUNT 3.99 10*6/uL (4.50-5.90); RED CELL DISTRI WIDTH 14.4 % (0-14.5); WHITE BLOOD COUNT 8.1 10*3/uL (4.8-10.8)
[2016-06-14 06:13] LABS: CPK 34 U/L (39-308)
[2016-06-14 06:17] LABS: CKMB < 0.5 ng/ml (0.5-3.6); TROPONIN I < 0.015 ng/ml (<0.045)
[2016-06-14 06:32] LABS: ALBUMIN 2.8 gm/dl (3.1-4.5); ALKALINE PHOSPHATASE 150 U/L (45-117); BILIRUBIN, TOTAL 0.8 mg/dl (0.2-1.0); BUN 22 mg/dl (7-24); CARBON DIOXIDE 26 mmol/L (21-32); CHLORIDE 105 mmol/L (98-107); EST GLOM FILT AFRICAN AMERICAN > 60 ml/min; GLUCOSE 87 mg/dL (65-99); MAGNESIUM 1.9 mg/dL (1.5-2.1); PHOSPHOROUS 2.9 mg/dL (2.5-4.9); POTASSIUM 4.4 mmol/L (3.5-5.1); SGOT/AST 31 IU/L (3-35); SGPT/ALT 44 U/L (12-78); SODIUM 139 mmol/L (136-145)
[2016-06-14 08:00] VITALS: BP 104/56
[2016-06-14 12:00] VITALS: BP 110/56
[2016-06-14 12:10] LABS: CPK 32 U/L (39-308)
[2016-06-14 12:11] LABS: CKMB < 0.5 ng/ml (0.5-3.6); TROPONIN I < 0.015 ng/ml (<0.045)
[2016-06-14 16:00] VITALS: BP 110/64
[2016-06-14 20:21] VITALS: BP 124/64
[2016-06-15] VITALS: BP 115/57; BP 128/51
[2016-06-15 05:56] LABS: BASO % 0.3 % (0.0-1.0); HEMATOCRIT 36.1 % (42.0-52.0); HEMOGLOBIN 11.7 g/dl (14.0-18.0); LYMPH # 2.1 10*3/uL (1.3-4.4); LYMPH % 26.1 % (27.0-41.0); MEAN CELL VOLUME 85.7 fl (80.0-94.0); MEAN CORPUSCULAR HGB 27.8 pg (27.0-31.0); MEAN CORPUSCULAR HGB CONC 32.4 g/dl (33.0-37.0); MEAN PLATELET VOLUME 9.7 fl (9.6-12.3); MONO # 0.8 10*3/uL (0.1-1.0); MONO % 10.5 % (3.0-9.0); NEUT % 62.7 % (47.0-73.0); PLATELET COUNT AUTOMATED 194 10*3/uL (130-400); RED BLOOD COUNT 4.21 10*6/uL (4.50-5.90); RED CELL DISTRI WIDTH 14.6 % (0-14.5); WHITE BLOOD COUNT 7.9 10*3/uL (4.8-10.8)
[2016-06-15 06:34] LABS: CHLORIDE 102 mmol/L (98-107); POTASSIUM 4.5 mmol/L (3.5-5.1); SODIUM 136 mmol/L (136-145)
[2016-06-15 06:48] LABS: ALBUMIN 2.8 gm/dl (3.1-4.5); ALKALINE PHOSPHATASE 141 U/L (45-117); BILIRUBIN, TOTAL 0.9 mg/dl (0.2-1.0); BUN 21 mg/dl (7-24); CARBON DIOXIDE 24 mmol/L (21-32); EST GLOM FILT AFRICAN AMERICAN > 60 ml/min; GLUCOSE 88 mg/dL (65-99); SGOT/AST 38 IU/L (3-35); SGPT/ALT 43 U/L (12-78); TOTAL PROTEIN 8.5 gm/dL (6.4-8.2)
[2016-06-15 08:00] VITALS: BP 146/84
[2016-06-15 12:00] VITALS: BP 107/58
[2016-06-15 16:00] VITALS: BP 111/83; BP 113/68
[2016-06-15 20:00] VITALS: BP 110/64
[2016-06-16] VITALS: BP 115/57
[2016-06-16 07:34] LABS: BUN 22 mg/dl (7-24); CARBON DIOXIDE 28 mmol/L (21-32); CHLORIDE 101 mmol/L (98-107); EST GLOM FILT AFRICAN AMERICAN > 60 ml/min; GLUCOSE 84 mg/dL (65-99); POTASSIUM 4.2 mmol/L (3.5-5.1); SODIUM 137 mmol/L (136-145)
[2016-06-16 08:00] VITALS: BP 122/72
[2016-06-16 12:00] VITALS: BP 98/62
[2016-06-16] MEDS ORDERED: DOXYCYCLINE100 MG PO (13:24)
[2016-06-16] MEDS ORDERED: XARE20MG PO (13:24)
[2016-06-16] MEDS ORDERED: LISINOPRIL10 M1 PO (13:24)
[2016-06-16] MEDS ORDERED: ZYVOX600 MG PO (13:24)
[2016-06-16] MEDS ORDERED: PACERONE200 MG PO (13:24)
[2016-06-16 15:55] VITALS: BP 104/57
== END 2016-06-16 17:02 | disposition home or self-care (01) | DRG 178 ==
LOC: ED 17:05 → EDHOLD 18:08 → 5E 18:08
PROVIDERS: Hospitalist; Internal Medicine; Internal Medicine Cardiovascular Disease; Student in an Organized Health Care Education/Training Program
DX: J15.6 Pneumonia due to other Gram-negative bacteria (principal); J44.0 Chronic obstructive pulmonary disease with (acute) lower respiratory infection; I47.2 Ventricular tachycardia; I42.0 Dilated cardiomyopathy; I13.0 Hypertensive heart and chronic kidney disease with heart failure and stage 1 through stage 4 chronic kidney disease, or unspecified chronic kidney disease; I50.22 Chronic systolic (congestive) heart failure; N30.00 Acute cystitis without hematuria; J18.1 Lobar pneumonia, unspecified organism; I48.0 Paroxysmal atrial fibrillation; R91.8 Other nonspecific abnormal finding of lung field; E78.2 Mixed hyperlipidemia; E78.1 Pure hyperglyceridemia; K21.9 Gastro-esophageal reflux disease without esophagitis; I48.2 Chronic atrial fibrillation; E03.9 Hypothyroidism, unspecified; N18.3 Chronic kidney disease, stage 3 (moderate); R91.1 Solitary pulmonary nodule; Z95.810 Presence of automatic (implantable) cardiac defibrillator; Z91.14 Patient's other noncompliance with medication regimen; Z80.9 Family history of malignant neoplasm, unspecified; Z82.5 Family history of asthma and other chronic lower respiratory diseases; Z88.1 Allergy status to other antibiotic agents; Z79.82 Long term (current) use of aspirin; Z79.899 Other long term (current) drug therapy

== ENCOUNTER → 2016-07-05 | Outpatient (CLI) | payer MEDICARE ==
[~2016-07-05] MED LIST changes: +DOXYCYCLINE100 MG PO; +LISINOPRIL10 M1 PO; +XARE20MG PO; +ZYVOX600 MG PO
== END | disposition home or self-care (01) ==
LOC: CT 11:00
DX: J98.11 Atelectasis (principal); I25.10 Atherosclerotic heart disease of native coronary artery without angina pectoris; R59.9 Enlarged lymph nodes, unspecified

== ENCOUNTER 2016-08-23 11:17 | Inpatient (IN) | payer MEDICARE ==
[~2016-08-23] VITALS: Ht 188 cm; Wt 91.6 kg
--- NOTE | ~2016-08-23 | CON ---
[place], [place] REPORT OF CONSULTATION NAME: ASHLEE REINOSO JR UNIT #: [id number] ROOM: [facility] DOCTOR: GALO WILLIS,YUMIKO BIRTHDATE: [birth year] DOS: 08/27/2016 CARDIOLOGY CONSULTATION. REASON FOR CONSULTATION: Atrial fibrillation with rapid ventricular rate. CLINICAL HISTORY: The patient is a 76-year-old gentleman with history of cardiomyopathy, recent infection and ICD explant, presented to the Emergency Room with cough and right-sided chest wall pain. He described this pain as a sharp pain, comes with cough, but denied any exertional chest pains or palpitations. No hemoptysis. No palpitations, dizziness. No syncope. No PND, no orthopnea, no fever and chills. No nausea, vomiting, or diarrhea. His only complaint is sharp right-sided chest pain with no radiation. The pain comes with cough and relieved with rest. No hematuria or dysuria. REVIEW OF SYSTEMS: Review of the 8 systems negative except as mentioned above. PAST MEDICAL HISTORY: 1. Chronic atrial fibrillation. 2. Cardiomyopathy. 3. ICD insertion. 4. Chronic kidney disease. 5. COPD. 6. Hypertension. 7. Dyslipidemia. 8. Lung mass. PAST SURGICAL HISTORY: 1. History of ICD implant as well as ICD explant recently. 2. Hernia repair. SOCIAL HISTORY: The patient does not use illicit drugs, does not smoke, but drinks alcohol occasionally. FAMILY HISTORY: Father at the age of 60 from COPD. Mother at the age around 60s from cancer and brother had heart failure. ALLERGIES: The patient is allergic to CIPRO. HOME MEDICATIONS: Reviewed. Cardiac medications include amiodarone, apixaban, Lipitor, metoprolol. PHYSICAL EXAMINATION: VITAL SIGNS: Blood pressure 138/62, pulse 68, respiratory rate 16. GENERAL: Alert, comfort, no acute distress. HEENT: Pupils are round and equal. No jaundice. Tongue was moist and pharynx was clear. NECK: Supple. No distended neck veins. The patient had a small lump at the right side of the neck as well as some suture material hanging outside. Thyroid not palpable. [place], [place] REPORT OF CONSULTATION NAME: ASHLEE REINOSO JR UNIT #: [id number] ROOM: [facility] DOCTOR: GALO WILLIS,YUMIKO BIRTHDATE: [birth year] CHEST: Symmetrical, nontender. LUNGS: Few scattered rhonchi, but good air entry bilaterally. HEART: Regular rhythm. No S3. No palpable thrills. Grade 1/6 systolic murmur. ABDOMEN: Benign, nontender. Bowel sounds normal. EXTREMITIES: Showed trace edema. SKIN: Warm and dry. No cyanosis, no clubbing. NEUROLOGIC: The patient is alert, oriented. No focal neurologic deficit. RECTAL: Deferred. GENITOURINARY: Deferred. MUSCULOSKELETAL: No joint tenderness or swelling. REVIEW OF THE DIAGNOSTIC TESTS: EKG rhythm strips and labs reviewed. EKG, atrial fibrillation with right bundle branch block. IMPRESSION: 1. Atrial fibrillation with rapid ventricular rate, currently rates stable. 2. Atypical chest pain, appears to be musculoskeletal. 3. Positive pneumonia. 4. Cardiomyopathy. 5. Recent fungal infection status post ICD explant and recurrent the patient is wearing wearable external LifeVest. 6. Anemia. 7. Hypertension. 8. Chronic obstructive pulmonary disease. 9. Chronic kidney disease. RECOMMENDATIONS: 1. I will discontinue IV Cardizem and start him on p.o. Cardizem 180 once a day and continue his Toprol, amiodarone and Eliquis. 2. No further cardiac testing at this time. 3. Home in 24-48 hours. 4. Follow in about 4-6 weeks once he finishes his antibiotic and antifungal therapy and cleared by the ID for the ICD implant. 5. There is no family at bedside at the time of my examination. YUMIKO ROSENTHAL MD CM:CONSTR:REPORT OF CONSULTATION 0765 08/27/16 0944 interface
--- NOTE | ~2016-08-23 | PR ---
[place], [place] PROGRESS NOTE NAME: ASHLEE REINOSO JR UNIT #: [id number] ROOM: 404 DOCTOR: GIDEON PLASENCIA MD BIRTHDATE: [birth year] DOS: 08/25/2016 SUBJECTIVE: The patient has been noted without any ongoing new complaints. Sitting on the chair for this patient's cough has been noted with sputum expectoration and small amount of blood was also noted in the sputum. He denies symptoms of chest pain. He does not have any symptoms of abdominal pain. He has been continued on broad-spectrum intravenous antibiotics including antifungal therapy because of past diagnosis of fungemia. OBJECTIVE: VITAL SIGNS: Recorded show the temperature noted as normal. The respiratory recorded as temperature normal, respiratory rate 18, heart rate 84, blood pressure 130/69-130/68. Pulse oxygen saturation on 2 liters nasal cannula 99% saturation recorded. HEENT: Shows head was atraumatic. Eyes nonicterus. NECK: Supple. CARDIOVASCULAR: S1, S2 audible. LUNGS: Crackles are noted in the right lung. The left lung was noted clear. ABDOMEN: Soft, nontender. EXTREMITIES: Show no edema. LABORATORY DATA: CBC today: WBC count 10.1, hemoglobin 9.1, hematocrit 27.8, platelet count was normal. BMP was done this morning noted normal BUN and creatinine. Blood culture from the shows gram-negative bacilli with pending identification and sensitivities. The vancomycin trough level noted as 11. IMPRESSION: 1. The patient with acute sepsis with acute pneumonia with gram-negative bacteremia. 2. Fungemia with possible infection of the previous site of AICD, AICD has been removed. Currently, the patient has a LifeVest in place. 3. Pulmonary nodule which has been planned for biopsy previously, but not completely because of the patient's current acute illness. PLAN OF TREATMENT: Order the sputum for Gram stain and culture. Monitor for the hemoptysis. Continue current antibiotic, the de-escalation antibiotic will be done based on the culture results availability from the blood. [place], [place] PROGRESS NOTE NAME: ASHLEE REINOSO JR UNIT #: [id number] ROOM: 404 DOCTOR: GIDEON PLASENCIA MD BIRTHDATE: [birth year] GIDEON THURMAN MD CM:PNTRANS 49 GIDEON JIMENEZ MD 08/25/16 1250 interface
--- NOTE | ~2016-08-23 | PR ---
[place], [place] PROGRESS NOTE NAME: ASHLEE REINOSO JR [facility] #: [id number] UNIT #: [id number] ROOM: 404 DOCTOR: GIDEON PLASENCIA MD BIRTHDATE: [birth year] DOS: 08/28/2016 PULMONARY FOLLOWUP NOTE SUBJECTIVE: He has been noted to be comfortable, able to expectorate some sputum in the last 24 hours. Denies symptoms of chest pain. Shortness of breath has been improving. OBJECTIVE: VITAL SIGNS: Shows a normal temperature, respiratory rate 18, heart rate of 66, blood pressure 122/80. Pulse oxygen saturation noted is 100% on 1 L nasal cannula. HEENT: Examination of head was atraumatic. Eyes nonicterus. NECK: Supple. CARDIOVASCULAR: S1 and S2 audible. LUNGS: Noted without any wheezing or crackles. ABDOMEN: Soft, nontender. LABORATORY DATA: The patient's CMP was noted as normal. CBC: WBC count 8.8, hemoglobin 28.1, platelet count was normal. The culture of the sputum noted as normal raul. IMPRESSION: 1. Progressive improvement has been noted in the oral respiratory status with resolving acute pneumonia with acute sepsis. 2. Fungemia, which has been treated with the antifungal therapy as well. The chest x-ray shows patchy infiltration in the right lower lobe yesterday without any progression. PLAN OF TREATMENT: The patient will be continued on current plan of management, bronchodilators, oxygen supplementation, antibiotics, and treatment as previously in progress. Supportive therapy plan and management. Obtain another chest x-ray in the morning, PA lateral to reassess the pneumonia progression. [place], [place] PROGRESS NOTE NAME: [id number] UNIT #: [id number] ROOM: 404 DOCTOR: GIDEON PLASENCIA MD BIRTHDATE: [birth year] GIDEON THURMAN MD CM:PNTRANS [id number] GIDEON JIMENEZ MD 08/28/16 1220 interface
--- NOTE | ~2016-08-23 | PR ---
[place], [place] PROGRESS NOTE NAME[id number] UNIT #: [id number] ROOM: 404 DOCTOR: CUCA JIMENEZ MD,GIDEON BIRTHDATE: [birth year] DOS: 08/27/2016 SUBJECTIVE: The patient has been noted to be comfortable at this time. He does have mild cough without any sputum expectoration. Denies chest pain or abdominal pain. OBJECTIVE: VITAL SIGNS: Temperature remains normal, respiratory rate 20, heart rate 68 and blood pressure 138/62. HEENT: No acute change. NECK: Supple. CARDIOVASCULAR: S1, S2 audible. LUNGS: Without any wheezing or crackles at the present time. Breaths are noted to be mildly decreased bilaterally. ABDOMEN: Soft, nontender. LABORATORY DATA: Culture of the sputum was noted to be normal raul on 08/26/2016. Gram stain shows many white blood cells, moderate epithelial cells, few Gram-positive cocci in pairs, chains and clusters. CMP done this morning was noted as essentially normal. CBC: WBC count was normal, hemoglobin 9.6, hematocrit 29.6 and platelet count 272,000. Chest x-ray, one-view, that was done this morning shows infiltration in the right lower lobe was still noted. IMPRESSION: 1. The patient with acute pneumonia with sepsis, which has been clinically resolving. 2. Fungemia which I noted recently, treated with antifungal therapy as well. PLAN OF MANAGEMENT: Continue the patient on current therapy as previously. Usual care, other supportive plan and management as in progress. Further treatment changes will be done based on progression of the illness. GIDEON THURMAN MD CM:PNTRANS [id number] GIDEON JIMENEZ MD 08/28/16 0105 interface
--- NOTE | ~2016-08-23 | CON ---
[place], [place] REPORT OF CONSULTATION NAME: ASHLEE REINOSO JR [facility] #: [id number] UNIT #: [id number] ROOM: 404 DOCTOR: CUCA JIMENEZ MDGIDEON BIRTHDATE: [birth year] DOS: 08/24/2016 PULMONARY CONSULTATION, EVALUATION AND MANAGEMENT NOTE REASON FOR CONSULTATION: To assess the patient's previously noted pulmonary nodules and other respiratory symptoms. HISTORY OF PRESENT ILLNESS: This is a 76-year-old white female who has been known to me from previous admission in [facility] noted with acute pneumonia. The patient also found to have 1.8 x 1.7 cm nodule in the left lower lobe and also nodule/atelectatic infiltration in the right middle lobe. In addition, nodule was noted in the right lung as well. The patient had a PET scan done for further assessment as an outpatient. He was seen in the office on 08/08/2016. CT-guided needle aspiration biopsy was planned for this patient and was scheduled to be done on 08/23/2016. The biopsy was not done. The patient is currently not noted to be fully awake and unable to give me any history at the present time. All the history has been obtained essentially from review of the past office note as well as recent hospitalization note, dictation by the other physicians note and past medical record review. He was brought to the hospital Emergency Room by the family members. The patient was noted with severe excruciating pain, which he described in the right lower chest wall. The patient was also noted symptoms of cough, which worsens the pain. He denies any symptoms of hemoptysis. The patient was also noted with symptoms of some shortness of breath. Currently, at this time, the patient is sitting on the chair, using oxygen supplementation and could not provide much history at this time. He seemed like admitted to [facility] noted with fungal infection the blood. The patient has been started on IV antifungal therapy. The PICC line to be completed for 6 days. Possible history of infection in the pocket of previous AICD was suspected. The AICD was removed. The patient had a LifeVest placed and discharged home. He has been discharged from the hospital recently. He has been described with symptoms of malaise, generalized weakness, and fatigue as well. Further details of the pain was unknown. REVIEW OF SYSTEMS: Could not be completed due to the fact the patient's lack of affect due to medication at this time of the assessment. PAST MEDICAL HISTORY: Noted with history of: 1. Essential hypertension. 2. Atrial fibrillation. 3. BPH. 4. Hypothyroidism. 5. Hypercholesterolemia. 6. Gastroesophageal reflux. 7. Pulmonary nodule was noted at this time. Recommended for biopsy. 8. Mild intermittent bronchial asthma. PAST SURGICAL HISTORY: 1. Inguinal hernia repair in the left side. 2. Left knee arthroscopy. 3. Left broken hand. [place], [place] REPORT OF CONSULTATION NAME: ASHLEE REINOSO JR UNIT #: [id number] ROOM: 404 DOCTOR: CUCA JIMENEZ MD,GIDEON BIRTHDATE: [birth year] 4. AICD insertion and then removal as well. SOCIAL HISTORY: The patient has been noted to be a , has 2 children. He has been noted 25 years of work in [employer] with inhalation of significant dust. There was no history of alcohol use, illicit drug use. The patient is a nonsmoker lifetime. MEDICATIONS: Home medications were noted on admission as use of amiodarone, Eliquis, Lipitor, Proscar, levothyroxine, loratadine, Mycamine, multivitamin, Flomax, and other p.r.n. medications. DRUG ALLERGIES: THE PATIENT WITH REPORTED ALLERGY TO THE CIPROFLOXACIN. PHYSICAL EXAMINATION: GENERAL: This is a 76-year-old male who has been currently sitting on the chair without any acute distress. Height was noted 6 feet 2 inches, weight of 202 pounds, BMI 25.6. VITAL SIGNS: Reported as normal. Temperature 99.6 degree Fahrenheit since admission. Respiratory recorded 18-20, heart rate 85-76, blood pressure 117/59-142/75. Pulse oxygen saturation was recorded as 96% on room air. HEENT: Head was atraumatic. Eyes nonicterus. NECK: Supple. CARDIOVASCULAR: S1, S2 audible. LUNGS: Without any wheezing. Scattered crackles were noted bilaterally. ABDOMEN: Soft, nontender. Bowel sounds present. EXTREMITIES: Does not show any edema, clubbing, or cyanosis. There are no clots. CENTRAL NERVOUS SYSTEM: No focal deficits noted. Cranial nerves 2-12 intact. SKIN: No lesions or rashes. MUSCULOSKELETAL: No deformities. LABORATORY DATA: CBC that was done yesterday on admission, WBC count 17.4, hemoglobin 11, hematocrit 33.5, and platelet count was normal. CMP that was done yesterday was noted with normal BUN and creatinine. Bilirubin noted was 1.3. Lactic acid 2.4 on admission, later followup lactic acid 1.4. Troponin was noted normal yesterday as well and the 2 additional tests of the patient yesterday normal. PT/INR was noted as 1.2 today. CBC on 08/24/2016, this morning was noted WBC count of 13.2, hemoglobin 8.3, hematocrit 25.6, platelet count 204,000. CMP this morning was noted as normal BUN and creatinine. Chest x-ray that was done, 1-view, on 08/23/2016, shows acute infiltration, consolidation noted in the right lower lung. IMPRESSION: 1. The patient who has been currently admitted to the hospital, has been treated recently for fungal infection and fungemia with IV Mycamine, developed acute pneumonia with acute sepsis. The etiology would be considered possibly to aspiration. 2. Pulmonary nodule, which has been noted with abnormal activity with a PET scan that was done on 08/01/2016 at [facility]. The patient was noted with multiple nodules in the lungs with abnormal SUV. The highest SUV [place], [place] REPORT OF CONSULTATION NAME: ASHLEE REINOSO JR UNIT #: [id number] ROOM: [facility] DOCTOR: CHANTALE PLASENCIA MDM BIRTHDATE: [birth year] noted in the pulmonary nodule in the left lower lobe 1.8 x 1.4 cm in the periphery of the right lower lung base as SUV as 8.7. 3. The patient with history of work in the [employer] in a patient who is a noted nonsmoker as well. 4. The patient with history of essential hypertension, hypercholesterolemia, and multiple other medical problems. PLAN OF TREATMENT: The patient has been currently started on the intravenous antibiotics for the management of the current pneumonia with the use of the Zosyn and vancomycin, should give good coverage of gram-negative and gram-positive organism, which would be suspected because of recent hospitalization for colonization of the airways. He has been also continued on Mycamine for the management of fungemia. At this time, certainly the biopsy was not completed since the patient was noted acutely ill for the past several days, the patient may require further assessment of pulmonary nodules and biopsy needs to be completed to rule out metastatic malignancy of the lung in one of differential diagnosis with infectious etiology remains in consideration as well. Other supportive therapy, plan and management as well. Usual care. Further treatment plan and changes were made in the treatment based on the progression of the illness. Closely monitor cultures of the blood and the sputum as well. Modify the antibiotics based on the culture results. Possibly rescanning the chest might be needed because of the current recent fungal infection to assess the pulmonary nodule as an outpatient. Thank you for allowing me to participate in the care of this patient. GIDEON THURMAN MD CM:CONSTR:REPORT OF CONSULTATION 1119 08/24/16 1359 interface
[2016-08-23 11:23] VITALS: BP 112/78
[2016-08-23] MEDS ORDERED: MYCAMINE100 MG IV (11:41)
[2016-08-23 11:54] LABS: HEMATOCRIT 33.5 % (42.0-52.0); MEAN CELL VOLUME 86.3 fl (80.0-94.0); MEAN CORPUSCULAR HGB 28.4 pg (27.0-31.0); MEAN CORPUSCULAR HGB CONC 32.8 g/dl (33.0-37.0); MEAN PLATELET VOLUME 9.6 fl (9.6-12.3); PLATELET COUNT AUTOMATED 267 10*3/uL (130-400); RED BLOOD COUNT 3.88 10*6/uL (4.50-5.90); RED CELL DISTRI WIDTH 15.9 % (0-14.5); WHITE BLOOD COUNT 17.4 10*3/uL (4.8-10.8)
[2016-08-23 11:56] LABS: BILIRUBIN NEGATIVE (NEGATIVE); BLOOD 3+ (NEGATIVE); CLARITY CLEAR (CLEAR); COLOR YELLOW (YELLOW); GLUCOSE NEGATIVE (NEGATIVE); KETONE NEGATIVE (NEGATIVE); LEUKO ESTERASE TRACE (NEGATIVE); NITRITE NEGATIVE (NEGATIVE); PROTEIN TRACE (NEGATIVE); SPECIFIC GRAVITY 1.025 (1.005-1.030)
[2016-08-23 12:04] LABS: BACTERIA TRACE; RBC 16-20 rbc/hpf (0-2); URINE REFLEX COMMENT YES (NO)
[2016-08-23 12:10] LABS: BASOPHIL # 0.2 10*3/uL (0-0.1); BASOPHILS 1 % (0-1); LYMPHOCYTE # 1.6 10*3/uL (1.3-4.4); NEUTROPHIL # 14.6 10*3/uL (2.3-7.9); NEUTROPHILS 84 % (47-73); TOTAL CELLS COUNTED 100 #CELLS
[2016-08-23 12:11] LABS: PLATELET SUFFICIENCY NORMAL (NORMAL); TOXIC GRANULATION SLIGHT; VACUOLATION OF NEUTROPHILS SLIGHT
[2016-08-23 12:21] LABS: ALBUMIN 2.6 gm/dl (3.1-4.5); ALKALINE PHOSPHATASE 144 U/L (45-117); BILIRUBIN, TOTAL 1.3 mg/dl (0.2-1.0); BUN 24 mg/dl (7-24); CARBON DIOXIDE 24 mmol/L (21-32); CHLORIDE 105 mmol/L (98-107); EST GLOM FILT AFRICAN AMERICAN > 60 ml/min; GLUCOSE 106 mg/dL (65-99); POTASSIUM 3.9 mmol/L (3.5-5.1); SGOT/AST 29 IU/L (3-35); SGPT/ALT 28 U/L (12-78); SODIUM 141 mmol/L (136-145); TOTAL PROTEIN 8.8 gm/dL (6.4-8.2)
[2016-08-23 12:22] LABS: TROPONIN I < 0.015 ng/ml (<0.045)
[2016-08-23 13:05] VITALS: BP 121/72
[2016-08-23 13:50] LABS: LA>2 REFLEX 2 HR DRAW NOW
[2016-08-23] MEDS ORDERED: CLARITIN10 MG PO (14:11)
[2016-08-23] MEDS ORDERED: ELIQUIS5 M1 PO (14:12)
[2016-08-23] MEDS ORDERED: AMIODARONE HCL200 MG PO (14:14)
[2016-08-23 14:15] VITALS: BP 129/95; BP 130/82
[2016-08-23 14:49] LABS: LA>2 RFLX FOLLOW UP AT 2 HRS 2.4 mmol/L (0.4-2.0)
[2016-08-23 16:00] VITALS: BP 110/52
[2016-08-23 16:42] LABS: LA>2 REFLEX 4 HR DRAW NOW
[2016-08-23 20:00] VITALS: BP 117/59
[2016-08-24] VITALS: BP 130/62
[2016-08-24 05:55] LABS: BASO % 0.2 % (0.0-1.0); EOS % 0.1 % (1.0-4.0); IG # 0.1 10*3/uL (0.0-0.1); LYMPH % 15.2 % (27.0-41.0); MEAN CELL VOLUME 86.5 fl (80.0-94.0); MEAN CORPUSCULAR HGB CONC 32.4 g/dl (33.0-37.0); MEAN PLATELET VOLUME 9.3 fl (9.6-12.3); MONO # 1.2 10*3/uL (0.1-1.0); MONO % 9.3 % (3.0-9.0); NEUT # 9.8 10*3/uL (2.3-7.9); NEUT % 74.3 % (47.0-73.0); PLATELET COUNT AUTOMATED 204 10*3/uL (130-400); RED BLOOD COUNT 2.96 10*6/uL (4.50-5.90); RED CELL DISTRI WIDTH 15.9 % (0-14.5); WHITE BLOOD COUNT 13.2 10*3/uL (4.8-10.8)
[2016-08-24 05:56] LABS: HEMATOCRIT 25.6 % (42.0-52.0); HEMOGLOBIN 8.3 g/dl (14.0-18.0)
[2016-08-24 06:02] LABS: ESTIMATED AVERAGE GLUCOSE 54
[2016-08-24 06:03] LABS: HEMOGLOBIN A1c < 3.5 % (4.8-5.6)
[2016-08-24 06:18] LABS: INTERNATIONAL NORM RATIO 1.2 (2.0-3.5); PROTHROMBIN TIME 12.5 SECONDS (9.0-12.4)
[2016-08-24 06:26] LABS: ALBUMIN 1.8 gm/dl (3.1-4.5); ALKALINE PHOSPHATASE 100 U/L (45-117); BILIRUBIN, TOTAL 1.1 mg/dl (0.2-1.0); BUN 18 mg/dl (7-24); CARBON DIOXIDE 23 mmol/L (21-32); CHLORIDE 108 mmol/L (98-107); EST GLOM FILT AFRICAN AMERICAN > 60 ml/min; GLUCOSE 82 mg/dL (65-99); HDL CHOLESTEROL 22 mg/dl (40-60); MAGNESIUM 1.7 mg/dL (1.5-2.1); PHOSPHOROUS 2.3 mg/dL (2.5-4.9); POTASSIUM 3.6 mmol/L (3.5-5.1); SGOT/AST 19 IU/L (3-35); SGPT/ALT 18 U/L (12-78); SODIUM 143 mmol/L (136-145); TOTAL PROTEIN 7.2 gm/dL (6.4-8.2); TRIGLYCERIDES 40 mg/dl (<150); VLDL CHOLESTEROL 8 mg/dL (6-40)
[2016-08-24 06:31] LABS: THYROID STIM HORMONE (HS) 0.498 uIU/ml (0.358-4.75)
[2016-08-24 06:41] LABS: CHOLESTEROL < 50 mg/dL (<200); LDL CHOLESTEROL 20 mg/dL (9-159)
[2016-08-24 06:49] LABS: VITAMIN D, 25-HYDROXY 33.8 ng/mL (30-100)
[2016-08-24 06:57] LABS: FOLIC ACID > 24.00 ng/mL (>5.38)
[2016-08-24 08:00] VITALS: BP 142/75
[2016-08-24 12:00] VITALS: BP 128/70
[2016-08-24 16:00] VITALS: BP 116/66
[2016-08-24 20:00] VITALS: BP 128/70
[2016-08-24 22:00] VITALS: BP 128/70
[2016-08-25] VITALS: BP 130/68
[2016-08-25 06:12] LABS: BASO % 0.1 % (0.0-1.0); EOS # 0.1 10*3/uL (0.0-0.4); HEMATOCRIT 27.8 % (42.0-52.0); HEMOGLOBIN 9.1 g/dl (14.0-18.0); IG # 0.1 10*3/uL (0.0-0.1); LYMPH # 1.6 10*3/uL (1.3-4.4); LYMPH % 16.1 % (27.0-41.0); MEAN CELL VOLUME 86.3 fl (80.0-94.0); MEAN CORPUSCULAR HGB 28.3 pg (27.0-31.0); MEAN CORPUSCULAR HGB CONC 32.7 g/dl (33.0-37.0); MEAN PLATELET VOLUME 9.2 fl (9.6-12.3); MONO # 0.7 10*3/uL (0.1-1.0); MONO % 7.1 % (3.0-9.0); NEUT # 7.6 10*3/uL (2.3-7.9); NEUT % 74.9 % (47.0-73.0); PLATELET COUNT AUTOMATED 240 10*3/uL (130-400); RED BLOOD COUNT 3.22 10*6/uL (4.50-5.90); RED CELL DISTRI WIDTH 15.6 % (0-14.5); WHITE BLOOD COUNT 10.1 10*3/uL (4.8-10.8)
[2016-08-25 06:47] LABS: BUN 17 mg/dl (7-24); CARBON DIOXIDE 26 mmol/L (21-32); CHLORIDE 106 mmol/L (98-107); EST GLOM FILT AFRICAN AMERICAN > 60 ml/min; GLUCOSE 89 mg/dL (65-99); POTASSIUM 3.8 mmol/L (3.5-5.1); SODIUM 141 mmol/L (136-145)
[2016-08-25 08:00] VITALS: BP 130/69
[2016-08-25 12:00] VITALS: BP 137/74
[2016-08-25 16:00] VITALS: BP 133/65
[2016-08-25 20:00] VITALS: BP 125/68
[2016-08-26] VITALS: BP 125/64
[2016-08-26 06:24] LABS: BASO % 0.2 % (0.0-1.0); EOS # 0.1 10*3/uL (0.0-0.4); HEMATOCRIT 27.7 % (42.0-52.0); HEMOGLOBIN 8.9 g/dl (14.0-18.0); LYMPH # 1.9 10*3/uL (1.3-4.4); LYMPH % 20.4 % (27.0-41.0); MEAN CELL VOLUME 85.5 fl (80.0-94.0); MEAN CORPUSCULAR HGB 27.5 pg (27.0-31.0); MEAN CORPUSCULAR HGB CONC 32.1 g/dl (33.0-37.0); MEAN PLATELET VOLUME 9.2 fl (9.6-12.3); MONO # 0.8 10*3/uL (0.1-1.0); MONO % 8.3 % (3.0-9.0); NEUT # 6.3 10*3/uL (2.3-7.9); NEUT % 69.7 % (47.0-73.0); PLATELET COUNT AUTOMATED 261 10*3/uL (130-400); RED BLOOD COUNT 3.24 10*6/uL (4.50-5.90); RED CELL DISTRI WIDTH 15.3 % (0-14.5); WHITE BLOOD COUNT 9.1 10*3/uL (4.8-10.8)
[2016-08-26 06:52] LABS: ALBUMIN 1.8 gm/dl (3.1-4.5); ALKALINE PHOSPHATASE 110 U/L (45-117); BILIRUBIN, TOTAL 0.6 mg/dl (0.2-1.0); BUN 13 mg/dl (7-24); CARBON DIOXIDE 26 mmol/L (21-32); CHLORIDE 106 mmol/L (98-107); EST GLOM FILT AFRICAN AMERICAN > 60 ml/min; GLUCOSE 81 mg/dL (65-99); MAGNESIUM 1.7 mg/dL (1.5-2.1); POTASSIUM 3.9 mmol/L (3.5-5.1); SGOT/AST 26 IU/L (3-35); SGPT/ALT 23 U/L (12-78); SODIUM 140 mmol/L (136-145); TOTAL PROTEIN 7.2 gm/dL (6.4-8.2)
[2016-08-26 08:00] VITALS: BP 118/71
[2016-08-26 12:00] VITALS: BP 104/53
[2016-08-26 16:00] VITALS: BP 138/80
[2016-08-26 20:00] VITALS: BP 138/76
[2016-08-27] VITALS (8 sets, daily range): BP systolic 103–138; BP diastolic 57–76
[2016-08-27 06:01] LABS: BASO % 0.2 % (0.0-1.0); EOS # 0.1 10*3/uL (0.0-0.4); EOS % 1.5 % (1.0-4.0); HEMATOCRIT 29.6 % (42.0-52.0); HEMOGLOBIN 9.6 g/dl (14.0-18.0); LYMPH # 1.8 10*3/uL (1.3-4.4); LYMPH % 20.8 % (27.0-41.0); MEAN CORPUSCULAR HGB 27.9 pg (27.0-31.0); MEAN CORPUSCULAR HGB CONC 32.4 g/dl (33.0-37.0); MEAN PLATELET VOLUME 9.1 fl (9.6-12.3); MONO # 0.7 10*3/uL (0.1-1.0); MONO % 8.1 % (3.0-9.0); NEUT # 5.8 10*3/uL (2.3-7.9); NEUT % 68.9 % (47.0-73.0); PLATELET COUNT AUTOMATED 272 10*3/uL (130-400); RED BLOOD COUNT 3.44 10*6/uL (4.50-5.90); RED CELL DISTRI WIDTH 15.3 % (0-14.5); WHITE BLOOD COUNT 8.4 10*3/uL (4.8-10.8)
[2016-08-27 06:33] LABS: ALBUMIN 1.8 gm/dl (3.1-4.5); ALKALINE PHOSPHATASE 113 U/L (45-117); BILIRUBIN, TOTAL 0.7 mg/dl (0.2-1.0); BUN 15 mg/dl (7-24); CARBON DIOXIDE 27 mmol/L (21-32); CHLORIDE 105 mmol/L (98-107); EST GLOM FILT AFRICAN AMERICAN > 60 ml/min; GLUCOSE 76 mg/dL (65-99); POTASSIUM 3.9 mmol/L (3.5-5.1); SGOT/AST 24 IU/L (3-35); SGPT/ALT 24 U/L (12-78); SODIUM 140 mmol/L (136-145); TOTAL PROTEIN 7.5 gm/dL (6.4-8.2)
[2016-08-28] VITALS: BP 134/72
[2016-08-28 06:26] LABS: BASO % 0.3 % (0.0-1.0); EOS # 0.1 10*3/uL (0.0-0.4); EOS % 1.7 % (1.0-4.0); HEMATOCRIT 28.1 % (42.0-52.0); HEMOGLOBIN 8.8 g/dl (14.0-18.0); LYMPH # 1.6 10*3/uL (1.3-4.4); LYMPH % 21.1 % (27.0-41.0); MEAN CELL VOLUME 87.3 fl (80.0-94.0); MEAN CORPUSCULAR HGB 27.3 pg (27.0-31.0); MEAN CORPUSCULAR HGB CONC 31.3 g/dl (33.0-37.0); MEAN PLATELET VOLUME 9.2 fl (9.6-12.3); MONO # 0.6 10*3/uL (0.1-1.0); MONO % 7.6 % (3.0-9.0); NEUT # 5.3 10*3/uL (2.3-7.9); NEUT % 68.8 % (47.0-73.0); PLATELET COUNT AUTOMATED 280 10*3/uL (130-400); RED BLOOD COUNT 3.22 10*6/uL (4.50-5.90); RED CELL DISTRI WIDTH 15.3 % (0-14.5); WHITE BLOOD COUNT 7.8 10*3/uL (4.8-10.8)
[2016-08-28 06:57] LABS: ALBUMIN 1.8 gm/dl (3.1-4.5); ALKALINE PHOSPHATASE 111 U/L (45-117); BILIRUBIN, TOTAL 0.5 mg/dl (0.2-1.0); BUN 15 mg/dl (7-24); CARBON DIOXIDE 28 mmol/L (21-32); CHLORIDE 104 mmol/L (98-107); EST GLOM FILT AFRICAN AMERICAN > 60 ml/min; GLUCOSE 77 mg/dL (65-99); MAGNESIUM 1.8 mg/dL (1.5-2.1); POTASSIUM 4.1 mmol/L (3.5-5.1); SGOT/AST 23 IU/L (3-35); SGPT/ALT 23 U/L (12-78); SODIUM 140 mmol/L (136-145); TOTAL PROTEIN 7.4 gm/dL (6.4-8.2)
[2016-08-28 08:00] VITALS: BP 122/80
[2016-08-28 12:00] VITALS: BP 106/42
[2016-08-28 16:00] VITALS: BP 156/84
[2016-08-28 20:00] VITALS: BP 147/80
[2016-08-29] VITALS: BP 121/60
[2016-08-29 06:47] LABS: BASO % 0.1 % (0.0-1.0); EOS # 0.1 10*3/uL (0.0-0.4); EOS % 1.9 % (1.0-4.0); HEMATOCRIT 28.7 % (42.0-52.0); HEMOGLOBIN 9.2 g/dl (14.0-18.0); LYMPH # 1.5 10*3/uL (1.3-4.4); LYMPH % 20.4 % (27.0-41.0); MEAN CELL VOLUME 87.2 fl (80.0-94.0); MEAN CORPUSCULAR HGB CONC 32.1 g/dl (33.0-37.0); MEAN PLATELET VOLUME 9.3 fl (9.6-12.3); MONO # 0.6 10*3/uL (0.1-1.0); MONO % 7.6 % (3.0-9.0); NEUT # 5.2 10*3/uL (2.3-7.9); NEUT % 69.5 % (47.0-73.0); PLATELET COUNT AUTOMATED 296 10*3/uL (130-400); RED BLOOD COUNT 3.29 10*6/uL (4.50-5.90); RED CELL DISTRI WIDTH 15.5 % (0-14.5); WHITE BLOOD COUNT 7.5 10*3/uL (4.8-10.8)
[2016-08-29 07:26] LABS: CHLORIDE 102 mmol/L (98-107); POTASSIUM 4.6 mmol/L (3.5-5.1); SODIUM 138 mmol/L (136-145)
[2016-08-29 07:42] LABS: ALBUMIN 1.9 gm/dl (3.1-4.5); ALKALINE PHOSPHATASE 134 U/L (45-117); BILIRUBIN, TOTAL 0.6 mg/dl (0.2-1.0); BUN 15 mg/dl (7-24); CARBON DIOXIDE 29 mmol/L (21-32); EST GLOM FILT AFRICAN AMERICAN > 60 ml/min; GLUCOSE 74 mg/dL (65-99); MAGNESIUM 1.9 mg/dL (1.5-2.1); SGOT/AST 30 IU/L (3-35); SGPT/ALT 29 U/L (12-78); TOTAL PROTEIN 7.7 gm/dL (6.4-8.2)
[2016-08-29 12:00] VITALS: BP 122/62
[2016-08-29] MEDS ORDERED: AUGMENTIN 875-875 MG PO (12:06)
[2016-08-29] MEDS ORDERED: MYCAMINE100 MG IV (12:06)
[2016-08-29] MEDS ORDERED: DILTIAZEM 24HR120 MG PO (13:36)
[2016-09-01 17:05] LABS: ANAEROBE RESULT 1 Clostridium species (.); RESULT Preliminary report (.)
== END 2016-08-29 17:34 | disposition home or self-care (01) | DRG 871 ==
LOC: ED 11:17 → 4E 13:12 → EDHOLD 13:12 → 4E 13:34
PROVIDERS: Emergency Medicine; Hospitalist; Internal Medicine; Registered Nurse; Student in an Organized Health Care Education/Training Program
DX: A41.9 Sepsis, unspecified organism (principal); J18.1 Lobar pneumonia, unspecified organism; E43 Unspecified severe protein-calorie malnutrition; I38 Endocarditis, valve unspecified; B48.8 Other specified mycoses; J44.0 Chronic obstructive pulmonary disease with (acute) lower respiratory infection; E83.39 Other disorders of phosphorus metabolism; I42.9 Cardiomyopathy, unspecified; N39.0 Urinary tract infection, site not specified; R65.20 Severe sepsis without septic shock; D64.9 Anemia, unspecified; R74.8 Abnormal levels of other serum enzymes; K21.9 Gastro-esophageal reflux disease without esophagitis; E78.2 Mixed hyperlipidemia; I12.9 Hypertensive chronic kidney disease with stage 1 through stage 4 chronic kidney disease, or unspecified chronic kidney disease; I48.2 Chronic atrial fibrillation; N18.3 Chronic kidney disease, stage 3 (moderate); R91.8 Other nonspecific abnormal finding of lung field; E80.6 Other disorders of bilirubin metabolism; N40.0 Benign prostatic hyperplasia without lower urinary tract symptoms; Z88.1 Allergy status to other antibiotic agents; Z83.6 Family history of other diseases of the respiratory system; Z82.49 Family history of ischemic heart disease and other diseases of the circulatory system; Z80.9 Family history of malignant neoplasm, unspecified; Z79.899 Other long term (current) drug therapy; Z68.36 Body mass index [BMI] 36.0-36.9, adult

== ENCOUNTER 2016-10-02 16:03 | Inpatient (IN) | payer MEDICARE ==
[~2016-10-02] VITALS: Ht 187.9 cm; Wt 90.4 kg
[~2016-10-02 16:03] MED LIST changes: +AMIODARONE HCL200 MG PO; +AUGMENTIN 875-875 MG PO; +CLARITIN10 MG PO; +DILTIAZEM 24HR120 MG PO; +MYCAMINE100 MG IV
[2016-10-02 16:07] VITALS: BP 131/67
[2016-10-02 17:51] LABS: BASO % 0.1 % (0.0-1.0); HEMATOCRIT 36.1 % (42.0-52.0); HEMOGLOBIN 11.7 g/dl (14.0-18.0); IG # 0.1 10*3/uL (0.0-0.1); LYMPH # 1.7 10*3/uL (1.3-4.4); LYMPH % 11.6 % (27.0-41.0); MEAN CELL VOLUME 87.6 fl (80.0-94.0); MEAN CORPUSCULAR HGB 28.4 pg (27.0-31.0); MEAN CORPUSCULAR HGB CONC 32.4 g/dl (33.0-37.0); MONO # 0.8 10*3/uL (0.1-1.0); MONO % 5.4 % (3.0-9.0); NEUT # 12.3 10*3/uL (2.3-7.9); NEUT % 82.5 % (47.0-73.0); PLATELET COUNT AUTOMATED 209 10*3/uL (130-400); RED BLOOD COUNT 4.12 10*6/uL (4.50-5.90); RED CELL DISTRI WIDTH 15.4 % (0-14.5); WHITE BLOOD COUNT 14.9 10*3/uL (4.8-10.8)
[2016-10-02 18:05] LABS: ALBUMIN 3.1 gm/dl (3.1-4.5); ALKALINE PHOSPHATASE 139 U/L (45-117); BILIRUBIN, TOTAL 0.9 mg/dl (0.2-1.0); BUN 22 mg/dl (7-24); C-REACTIVE PROTEIN 0.66 MG/DL (0-0.3); CARBON DIOXIDE 23 mmol/L (21-32); CHLORIDE 106 mmol/L (98-107); CPK 50 U/L (39-308); EST GLOM FILT AFRICAN AMERICAN > 60 ml/min; GLUCOSE 89 mg/dL (65-99); MAGNESIUM 1.5 mg/dL (1.5-2.1); POTASSIUM 4.3 mmol/L (3.5-5.1); SGOT/AST 55 IU/L (3-35); SGPT/ALT 56 U/L (12-78); SODIUM 137 mmol/L (136-145); TOTAL PROTEIN 8.8 gm/dL (6.4-8.2)
[2016-10-02 18:06] LABS: CKMB < 0.5 ng/ml (0.5-3.6); TROPONIN I < 0.015 ng/ml (<0.045)
[2016-10-02 19:26] VITALS: BP 131/69
[2016-10-02 21:07] VITALS: BP 141/74
[2016-10-02] MEDS ORDERED: PROCHLORPERAZIN10 MG PO (21:13)
[2016-10-03] VITALS: BP 120/58
[2016-10-03 05:09] LABS: BILIRUBIN NEGATIVE (NEGATIVE); BLOOD 1+ (NEGATIVE); CLARITY SL CLOUDY (CLEAR); COLOR YELLOW (YELLOW); GLUCOSE NEGATIVE (NEGATIVE); KETONE NEGATIVE (NEGATIVE); LEUKO ESTERASE 2+ (NEGATIVE); NITRITE POSITIVE (NEGATIVE); PH 5.5 (5.0-9.0); PROTEIN NEGATIVE (NEGATIVE); UROBILINOGEN 0.2 E.U./dl (0.2-1.0)
[2016-10-03 05:18] LABS: BACTERIA 3+; URINE REFLEX COMMENT YES (NO); WBC TNTC wbc/hpf (0-5)
[2016-10-03 06:12] LABS: BASO % 0.2 % (0.0-1.0); EOS % 0.1 % (1.0-4.0); HEMATOCRIT 30.6 % (42.0-52.0); HEMOGLOBIN 10.2 g/dl (14.0-18.0); IG # 0.1 10*3/uL (0.0-0.1); LYMPH # 2.4 10*3/uL (1.3-4.4); LYMPH % 16.2 % (27.0-41.0); MEAN CELL VOLUME 87.7 fl (80.0-94.0); MEAN CORPUSCULAR HGB 29.2 pg (27.0-31.0); MEAN CORPUSCULAR HGB CONC 33.3 g/dl (33.0-37.0); MEAN PLATELET VOLUME 10.1 fl (9.6-12.3); MONO % 7.1 % (3.0-9.0); NEUT # 11.1 10*3/uL (2.3-7.9); NEUT % 75.9 % (47.0-73.0); PLATELET COUNT AUTOMATED 171 10*3/uL (130-400); RED BLOOD COUNT 3.49 10*6/uL (4.50-5.90); RED CELL DISTRI WIDTH 15.5 % (0-14.5); WHITE BLOOD COUNT 14.7 10*3/uL (4.8-10.8)
[2016-10-03 06:28] LABS: ALBUMIN 2.3 gm/dl (3.1-4.5); ALKALINE PHOSPHATASE 101 U/L (45-117); BUN 18 mg/dl (7-24); CARBON DIOXIDE 26 mmol/L (21-32); CHLORIDE 107 mmol/L (98-107); EST GLOM FILT AFRICAN AMERICAN > 60 ml/min; GLUCOSE 87 mg/dL (65-99); MAGNESIUM 1.5 mg/dL (1.5-2.1); PHOSPHOROUS 3.4 mg/dL (2.5-4.9); POTASSIUM 3.9 mmol/L (3.5-5.1); SGOT/AST 33 IU/L (3-35); SGPT/ALT 38 U/L (12-78); SODIUM 138 mmol/L (136-145); TOTAL PROTEIN 7.2 gm/dL (6.4-8.2)
[2016-10-03 07:10] LABS: FREE T4 1.41 ng/dl (0.76-1.46); THYROID STIM HORMONE (HS) 0.318 uIU/ml (0.358-4.75)
[2016-10-03 08:00] VITALS: BP 121/68
[2016-10-03 12:00] VITALS: BP 104/54
[2016-10-03 16:00] VITALS: BP 110/61
[2016-10-03 20:00] VITALS: BP 134/68
[2016-10-04] VITALS: BP 115/61
[2016-10-04 06:01] LABS: BASO % 0.2 % (0.0-1.0); EOS # 0.1 10*3/uL (0.0-0.4); EOS % 0.4 % (1.0-4.0); HEMATOCRIT 31.9 % (42.0-52.0); HEMOGLOBIN 10.6 g/dl (14.0-18.0); LYMPH # 2.4 10*3/uL (1.3-4.4); LYMPH % 20.3 % (27.0-41.0); MEAN CELL VOLUME 86.9 fl (80.0-94.0); MEAN CORPUSCULAR HGB 28.9 pg (27.0-31.0); MEAN CORPUSCULAR HGB CONC 33.2 g/dl (33.0-37.0); MEAN PLATELET VOLUME 10.1 fl (9.6-12.3); MONO # 0.8 10*3/uL (0.1-1.0); NEUT # 8.6 10*3/uL (2.3-7.9); NEUT % 71.8 % (47.0-73.0); PLATELET COUNT AUTOMATED 183 10*3/uL (130-400); RED BLOOD COUNT 3.67 10*6/uL (4.50-5.90); RED CELL DISTRI WIDTH 15.5 % (0-14.5); WHITE BLOOD COUNT 11.9 10*3/uL (4.8-10.8)
[2016-10-04 08:00] VITALS: BP 129/64
[2016-10-04] MEDS ORDERED: NYSTOP100000 U/G T (10:09)
[2016-10-04 12:00] VITALS: BP 132/62
== END 2016-10-04 18:18 | disposition home or self-care (01) | DRG 871 ==
LOC: ED 16:03 → EDHOLD 18:46 → 4E 18:46
PROVIDERS: Emergency Medicine; Internal Medicine; Internal Medicine Hospice and Palliative Medicine
DX: A41.9 Sepsis, unspecified organism (principal); J18.1 Lobar pneumonia, unspecified organism; E43 Unspecified severe protein-calorie malnutrition; I38 Endocarditis, valve unspecified; D68.59 Other primary thrombophilia; I48.0 Paroxysmal atrial fibrillation; N39.0 Urinary tract infection, site not specified; L03.314 Cellulitis of groin; Z68.1 Body mass index [BMI] 19.9 or less, adult; R65.20 Severe sepsis without septic shock; E78.2 Mixed hyperlipidemia; J44.9 Chronic obstructive pulmonary disease, unspecified; N40.0 Benign prostatic hyperplasia without lower urinary tract symptoms; E03.9 Hypothyroidism, unspecified; D64.9 Anemia, unspecified; K21.9 Gastro-esophageal reflux disease without esophagitis; J30.2 Other seasonal allergic rhinitis; R31.9 Hematuria, unspecified; N18.3 Chronic kidney disease, stage 3 (moderate); I12.9 Hypertensive chronic kidney disease with stage 1 through stage 4 chronic kidney disease, or unspecified chronic kidney disease; Z82.5 Family history of asthma and other chronic lower respiratory diseases; Z95.810 Presence of automatic (implantable) cardiac defibrillator; Z80.9 Family history of malignant neoplasm, unspecified; Z82.49 Family history of ischemic heart disease and other diseases of the circulatory system; Z88.1 Allergy status to other antibiotic agents; Z79.899 Other long term (current) drug therapy

== ENCOUNTER → 2017-03-12 | Outpatient (CLI) | payer MEDICARE ==
[~2017-03-12] MED LIST changes: +NYSTOP100000 U/G T; +PROCHLORPERAZIN10 MG PO
[2017-03-12 11:00] LABS: BASO % 0.1 % (0.0-1.0); EOS # 0.1 10*3/uL (0.0-0.4); HEMATOCRIT 42.1 % (42.0-52.0); MEAN CELL VOLUME 89.2 fl (80.0-94.0); MEAN CORPUSCULAR HGB 29.7 pg (27.0-31.0); MEAN CORPUSCULAR HGB CONC 33.3 g/dl (33.0-37.0); MONO # 0.5 10*3/uL (0.1-1.0); MONO % 6.3 % (3.0-9.0); NEUT # 5.1 10*3/uL (2.3-7.9); NEUT % 66.3 % (47.0-73.0); PLATELET COUNT AUTOMATED 185 10*3/uL (130-400); RED BLOOD COUNT 4.72 10*6/uL (4.50-5.90); RED CELL DISTRI WIDTH 13.6 % (0-14.5); WHITE BLOOD COUNT 7.7 10*3/uL (4.8-10.8)
[2017-03-12 11:24] LABS: ALBUMIN 3.9 gm/dl (3.1-4.5); ALKALINE PHOSPHATASE 100 U/L (45-117); BUN 22 mg/dl (7-24); CHLORIDE 105 mmol/L (98-107); CHOLESTEROL 105 mg/dL (<200); CREATININE 1.06 mg/dL (0.70-1.30); IRON 89 ug/dL (65-175); SGOT/AST 34 IU/L (3-35); SGPT/ALT 45 U/L (12-78); SODIUM 140 mmol/L (136-145); TOTAL IRON BINDING CAPACITY 375 ug/dl (250-450); TRIGLYCERIDES 82 mg/dl (<150); VLDL CHOLESTEROL 16 mg/dL (6-40)
[2017-03-12 11:30] LABS: BILIRUBIN, DIRECT 0.3 mg/dL (0.0-0.2); FREE T4 1.51 ng/dl (0.76-1.46); HDL CHOLESTEROL 53 mg/dl (40-60); LDL CHOLESTEROL 36 mg/dL (9-159)
== END | disposition home or self-care (01) ==
LOC: LAB 10:42
PROVIDERS: Internal Medicine
DX: Z12.5 Encounter for screening for malignant neoplasm of prostate (principal); I10 Essential (primary) hypertension; E78.4 Other hyperlipidemia; E03.8 Other specified hypothyroidism; R35.1 Nocturia; R73.02 Impaired glucose tolerance (oral); E61.2 Magnesium deficiency; D50.9 Iron deficiency anemia, unspecified; Z79.1 Long term (current) use of non-steroidal anti-inflammatories (NSAID)

== ENCOUNTER 2017-07-15 18:20 | Inpatient (IN) | payer MEDICARE ==
[~2017-07-15] VITALS: Ht 188 cm; Wt 107.7 kg
--- NOTE | ~2017-07-15 | CON ---
[place], [place] REPORT OF CONSULTATION NAME: ASHLEE REINOSO JR [facility] #: [id number] UNIT #: [id number] ROOM: 402 DOCTOR: DARLIN SALES MD BIRTHDATE: [birth year] DOS: 07/16/2017 HISTORY OF PRESENT ILLNESS: The patient was seen today, 07/16/2017, at his bedside in [facility]. He is a 77-year-old man who does have a history of dilated nonischemic cardiomyopathy. He initially presented in September 2015 with a syncopal episode. He was found to have atrial fibrillation with a rapid ventricular response as well as periods of monomorphic ventricular tachycardia. He was transferred to [facility] where cardiac catheterization showed normal coronary arteries and an ejection fraction of 15%. He had a diagnosis of a dilated nonischemic cardiomyopathy. The rhythms were very difficult to control despite lidocaine, diltiazem, beta blockers, amiodarone and mexiletine. He eventually did receive an ICD and was discharged to home on amiodarone and mexiletine. An ICD was subsequently placed. He was lost to follow up until June 2016 when he presented with an ICD discharge. He was no longer on amiodarone, mexiletine or anticoagulation at that time. It is unclear whether he was instructed to stop the medications or simply ran out. He was stabilized, but was found to have a fungemia. He was sent to [facility] where his ICD and leads were removed. He was kept on a LifeVest until February 2017. At that time, an echocardiogram did show normal left ventricular systolic function and he seemed to be maintaining sinus rhythm. Ejection fraction was 58%. Left atrium was moderately enlarged. The mitral valve was structurally normal. 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 Given his history of ventricular tachycardia, he was still advised to have the ICD reinserted, but he refused. We did have problems with the patient with followup, compliance, etc. He was last seen by Dr. Darren Garcia, hazardous material specialist in [place] on 03/01/2017. His echocardiogram after that showed normal left ventricular function. Amiodarone and Eliquis were not resumed and he did not come back for followup. The patient states that he was doing well until the last 4 or 5 days. In that time, he began to have increased dyspnea, abdominal swelling, leg swelling, fatigue and chest heaviness. He denied palpitations. He finally presented to the Emergency Room on 07/15/2017 with a regular tachycardia. Serial cardiac enzymes were negative. Chest x-ray showed cardiomegaly, but no infiltrates. He was admitted for further management. I have reviewed his electrocardiograms and monitor strips. He does show runs of atrial flutter. I think that it is most likely that he has developed atrial arrhythmias again and that this has led to a recurrence of his cardiomyopathy and heart failure and symptoms. PAST MEDICAL HISTORY: Includes: 1. Hyperlipidemia. 2. Hypertension. 3. Gastroesophageal reflux disease. 4. History of obstructive lung disease due to occupational pulmonary exposure when he worked in the [employer]. 5. Hospitalization, 12/22/2014 with near syncope, felt due to dehydration. No other workup was done at that time. 6. Hospitalization, 09/03/2015 with lightheadedness and multiple syncopal [place], [place] REPORT OF CONSULTATION NAME: KEMAR ASHLEE WHITTEN UNIT #: [id number] ROOM: [facility] DOCTOR: DARLIN SALES MD BIRTHDATE: [birth year] episodes along with peripheral edema. The patient was found to be in atrial fibrillation with a rapid ventricular response. 7. Wide complex tachycardia documented during hospitalization, September 2015 due to monomorphic ventricular tachycardia. 8. Catheterization at [facility], September 2015 demonstrated ejection fraction 15%, but no coronary disease. Procedure done 09/07/2015. The patient was felt to have a nonischemic, dilated cardiomyopathy with chronic systolic heart failure. 9. Placement of dual chamber Medtronic ICD during hospitalization, September 2015. 10. Fungemia documented, summer. The patient had ICD and lead explant, August 2016 and wore a LifeVest until February 2017. 11. Echocardiogram, 03/29/2017, normal left ventricular size with ejection fraction 58%. Cardiac medications were discontinued because of poor patient's compliance and followup. 12. Hospitalization, 07/15/2017 with recurrent atrial flutter. MEDICATIONS PRIOR TO ADMISSION: Aspirin 81 mg per day, atorvastatin 40 mg at bedtime, finasteride 5 mg at bedtime, levothyroxine 75 mcg per day, magnesium oxide 400 mg b.i.d., metoprolol 100 mg b.i.d., multivitamin daily, ranitidine 150 mg b.i.d. and tamsulosin 0.8 mg at bedtime. ALLERGIES: The patient lists an allergy to CIPROFLOXACIN. REVIEW OF SYSTEMS: The patient denies diplopia, loss of vision, lightheadedness or syncope. He denies focal weakness. He denies orthopnea or PND, but has had increased fatigue, dyspnea and peripheral edema lately. He denies nausea or vomiting. He states his appetite has been good. He denies hemoptysis or hematemesis. He denies any change in bowel or bladder habits and denies blood in his stools or urine. He denies any skin rashes. He denies heat or cold intolerance. He denies polyuria or polydipsia. Remainder of the review of systems is negative except as noted above. FAMILY HISTORY: Negative for early coronary disease. SOCIAL HISTORY: The patient does not smoke. PHYSICAL EXAMINATION: GENERAL: The patient is an elderly white male who is awake, alert and oriented. VITAL SIGNS: Pulse is about 120 and slightly irregular, blood pressure is 128/83. He is afebrile. He weighs 107.7 kg and has a body mass index of 30.5. HEENT: Normocephalic and atraumatic. Extraocular muscles are intact. Sclerae are clear. Pupils are equal, round and react to light. The oral mucosa is moist. Tongue is midline. NECK: Supple. He has jugular distention almost to the angle of the jaw with hepatojugular reflux present. Carotids are full. There are no bruits. He has no neck or supraclavicular masses and no thyromegaly. LUNGS: Respirations are unlabored at rest. He has decreased breath sounds with rales at the bases bilaterally. He does have presacral edema. He has no chest wall tenderness. CARDIOVASCULAR: His heart has a regular rhythm with an occasional premature [place], [place] REPORT OF CONSULTATION NAME: ASHLEE REINOSO JR UNIT #: [id number] ROOM: [facility] DOCTOR: DARLIN SALES MD BIRTHDATE: [birth year] contraction. He has a third and a fourth heart sound. No obvious murmurs are present. The PMI is displaced laterally. There is no precordial heave, lift, thrill or rub. ABDOMEN: Distended with a slight fluid wave. There is no mass, organomegaly, tenderness or rebound. EXTREMITIES: Showed 3+ edema almost to the knees. Pedal pulses are diminished bilaterally. LABORATORY DATA: I reviewed his electrocardiogram. It shows a supraventricular tachycardia with periods of atrial flutter, right bundle-branch block and left anterior fascicular block. Hemoglobin is 12.8, hematocrit 39.5. There is 6400 white cells, platelet count 192,000. INR is 1.0. Sodium 140, potassium 4.2, chloride 106, CO2 of 27, BUN 20, creatinine 0.93. Serial troponin levels have been negative. A proBNP is 3637. Thyroid profile is not yet available. IMPRESSIONS: 1. Recurrent atrial flutter with rapid ventricular response. 2. History of dilated nonischemic cardiomyopathy. Cardiac catheterization in 2014 showed no coronary disease with an ejection fraction of 15%. 3. History of recurrent ventricular tachycardia in the setting of poor left ventricular function. The patient did have an implantable cardioverter-defibrillator placed. 4. Implantable cardioverter-defibrillator removed, summer because of fungemia. 5. Poor compliance with medications and followup. 6. Hospitalization, 07/15/2017 with recurrent heart failure and atrial flutter. DISCUSSION: It is likely that the patient does have recurrent atrial arrhythmias that lead to tachycardia and a tachycardia mediated cardiomyopathy. The patient was doing well in February when he was in sinus rhythm. An echocardiogram done at that time showed normal left ventricular function. However, lately he has had increased fatigue, dyspnea and pedal edema again and is now back in atrial flutter. We will diurese the patient. We will start him back on amiodarone for rate and rhythm control and we will start him back on apixaban for stroke prevention. An echocardiogram will be done to reassess left ventricular function. Further recommendations depend upon the results of these studies. I did encourage the patient that once he is discharged, he should be much more cooperative with compliance and I did give him our business card so that he knows that our offices are available here in the [facility]. I thank the hospitalist physicians for asking our advice regarding his care. [place], [place] REPORT OF CONSULTATION NAME: ASHLEE REINOSO JR UNIT #: [id number] ROOM: 402 DOCTOR: DARLIN SALES MD BIRTHDATE: [birth year] DARLIN SALES MD CM:CONSTR:REPORT OF CONSULTATION 0945 07/16/17 1020 interface
[2017-07-15 18:22] VITALS: BP 134/104
[2017-07-15 18:35] VITALS: BP 127/98
[2017-07-15 18:56] LABS: BASO % 0.2 % (0.0-1.0); EOS # 0.2 10*3/uL (0.0-0.4); EOS % 2.1 % (1.0-4.0); HEMATOCRIT 41.4 % (42.0-52.0); HEMOGLOBIN 13.3 g/dl (14.0-18.0); LYMPH # 2.2 10*3/uL (1.3-4.4); LYMPH % 25.2 % (27.0-41.0); MEAN CELL VOLUME 91.2 fl (80.0-94.0); MEAN CORPUSCULAR HGB 29.3 pg (27.0-31.0); MEAN CORPUSCULAR HGB CONC 32.1 g/dl (33.0-37.0); MEAN PLATELET VOLUME 10.4 fl (9.6-12.3); MONO # 0.6 10*3/uL (0.1-1.0); NEUT # 5.8 10*3/uL (2.3-7.9); NEUT % 65.3 % (47.0-73.0); PLATELET COUNT AUTOMATED 228 10*3/uL (130-400); RED BLOOD COUNT 4.54 10*6/uL (4.50-5.90); RED CELL DISTRI WIDTH 13.9 % (0-14.5); WHITE BLOOD COUNT 8.9 10*3/uL (4.8-10.8)
[2017-07-15 19:06] LABS: ACT PARTIAL THROMBO TIME 24.4 SECONDS (20.8-31.5)
[2017-07-15 19:13] LABS: ALBUMIN 3.6 gm/dl (3.1-4.5); ALKALINE PHOSPHATASE 117 U/L (45-117); BUN 26 mg/dl (7-24); CHLORIDE 107 mmol/L (98-107); CREATININE 1.05 mg/dL (0.70-1.30); POTASSIUM 4.8 mmol/L (3.5-5.1); SGOT/AST 23 IU/L (3-35); SGPT/ALT 30 U/L (12-78); SODIUM 140 mmol/L (136-145); TOTAL PROTEIN 7.6 gm/dL (6.4-8.2)
[2017-07-15 19:15] VITALS: BP 118/84
[2017-07-15 19:15] LABS: TROPONIN I < 0.015 ng/ml (<0.045)
[2017-07-15 20:00] VITALS: BP 124/91
[2017-07-15] MEDS ORDERED: ASPIR LOW81 MG PO (22:34)
[2017-07-15 22:38] LABS: BILIRUBIN NEGATIVE (NEGATIVE); BLOOD TRACE-INTACT (NEGATIVE); CLARITY CLEAR (CLEAR); COLOR YELLOW (YELLOW); GLUCOSE NEGATIVE (NEGATIVE); KETONE NEGATIVE (NEGATIVE); LEUKO ESTERASE 1+ (NEGATIVE); NITRITE POSITIVE (NEGATIVE); PH 5.5 (5.0-9.0); SPECIFIC GRAVITY <= 1.005 (1.005-1.030); UROBILINOGEN 0.2 E.U./dl (0.2-1.0)
[2017-07-15 22:39] VITALS: BP 122/93
[2017-07-15 22:46] LABS: BACTERIA 2+; EPITHELIAL CELLS 0-2; RBC 0-2 rbc/hpf (0-2); WBC 31-40 wbc/hpf (0-5)
[2017-07-15 23:03] VITALS: BP 120/95
[2017-07-16] VITALS: BP 186/76
[2017-07-16 04:00] VITALS: BP 106/82; BP 90/60
[2017-07-16 07:12] LABS: BASO % 0.3 % (0.0-1.0); EOS # 0.2 10*3/uL (0.0-0.4); EOS % 2.3 % (1.0-4.0); HEMATOCRIT 39.5 % (42.0-52.0); HEMOGLOBIN 12.8 g/dl (14.0-18.0); LYMPH # 1.7 10*3/uL (1.3-4.4); LYMPH % 26.7 % (27.0-41.0); MEAN CELL VOLUME 90.6 fl (80.0-94.0); MEAN CORPUSCULAR HGB 29.4 pg (27.0-31.0); MEAN CORPUSCULAR HGB CONC 32.4 g/dl (33.0-37.0); MEAN PLATELET VOLUME 10.3 fl (9.6-12.3); MONO # 0.5 10*3/uL (0.1-1.0); MONO % 7.9 % (3.0-9.0); NEUT % 62.5 % (47.0-73.0); PLATELET COUNT AUTOMATED 192 10*3/uL (130-400); RED BLOOD COUNT 4.36 10*6/uL (4.50-5.90); RED CELL DISTRI WIDTH 13.9 % (0-14.5); WHITE BLOOD COUNT 6.4 10*3/uL (4.8-10.8)
[2017-07-16 07:42] LABS: BUN 20 mg/dl (7-24); CHLORIDE 106 mmol/L (98-107); CREATININE 0.93 mg/dL (0.70-1.30); POTASSIUM 4.2 mmol/L (3.5-5.1); SODIUM 140 mmol/L (136-145)
[2017-07-16 08:00] VITALS: BP 128/83
[2017-07-16 12:00] VITALS: BP 132/82
[2017-07-16 16:00] VITALS: BP 100/78; BP 108/78
[2017-07-16 20:12] VITALS: BP 99/72
[2017-07-17] VITALS: BP 92/55
[2017-07-17 04:49] VITALS: BP 98/79
[2017-07-17 07:32] LABS: BUN 23 mg/dl (7-24); CHLORIDE 98 mmol/L (98-107); CREATININE 1.36 mg/dL (0.70-1.30); POTASSIUM 4.3 mmol/L (3.5-5.1); SODIUM 137 mmol/L (136-145)
[2017-07-17 08:00] VITALS: BP 107/79
[2017-07-17 12:00] VITALS: BP 111/70
[2017-07-17 16:00] VITALS: BP 107/67
[2017-07-17 20:00] VITALS: BP 116/76
[2017-07-18] VITALS: BP 114/61
[2017-07-18 08:00] VITALS: BP 125/70
[2017-07-18 10:50] LABS: BUN 26 mg/dl (7-24); CHLORIDE 103 mmol/L (98-107); CREATININE 1.35 mg/dL (0.70-1.30); POTASSIUM 4.3 mmol/L (3.5-5.1); SODIUM 139 mmol/L (136-145)
[2017-07-18 12:00] VITALS: BP 115/72
[2017-07-18 16:00] VITALS: BP 96/58
[2017-07-18 20:00] VITALS: BP 113/71
[2017-07-19] VITALS: BP 106/65
[2017-07-19 07:56] LABS: ALBUMIN 3.4 gm/dl (3.1-4.5); ALKALINE PHOSPHATASE 126 U/L (45-117); BUN 26 mg/dl (7-24); CHLORIDE 104 mmol/L (98-107); CREATININE 1.24 mg/dL (0.70-1.30); PHOSPHOROUS 3.1 mg/dL (2.5-4.9); POTASSIUM 4.3 mmol/L (3.5-5.1); SGOT/AST 29 IU/L (3-35); SGPT/ALT 35 U/L (12-78); SODIUM 138 mmol/L (136-145); TOTAL PROTEIN 7.8 gm/dL (6.4-8.2)
[2017-07-19 08:00] VITALS: BP 111/62
[2017-07-19] MEDS ORDERED: FUROSEMIDE20 M1 PO (10:18)
[2017-07-19] MEDS ORDERED: PACERONE200 MG PO (10:18)
[2017-07-19] MEDS ORDERED: ELIQUIS5 M1 PO (10:18)
[2017-07-19] MEDS ORDERED: AMINOPHYLLIN200 MG PO (10:20)
[2017-07-19 12:00] VITALS: BP 110/67
== END 2017-07-19 14:37 | disposition home or self-care (01) | DRG 205 ==
LOC: ED 18:20 → 4E 22:25 → EDHOLD 22:25 → 4E 22:40
PROVIDERS: Emergency Medicine; Internal Medicine Cardiovascular Disease; Internal Medicine Nephrology; Registered Nurse; Student in an Organized Health Care Education/Training Program
DX: M94.0 Chondrocostal junction syndrome [Tietze] (principal); I50.43 Acute on chronic combined systolic (congestive) and diastolic (congestive) heart failure; E44.0 Moderate protein-calorie malnutrition; I42.0 Dilated cardiomyopathy; E83.41 Hypermagnesemia; I48.92 Unspecified atrial flutter; J44.9 Chronic obstructive pulmonary disease, unspecified; I48.0 Paroxysmal atrial fibrillation; E78.5 Hyperlipidemia, unspecified; E03.9 Hypothyroidism, unspecified; I25.10 Atherosclerotic heart disease of native coronary artery without angina pectoris; N39.0 Urinary tract infection, site not specified; I11.0 Hypertensive heart disease with heart failure; Z66 Do not resuscitate; Z51.5 Encounter for palliative care; K21.9 Gastro-esophageal reflux disease without esophagitis; R31.9 Hematuria, unspecified; N40.0 Benign prostatic hyperplasia without lower urinary tract symptoms; Z79.01 Long term (current) use of anticoagulants; Z95.5 Presence of coronary angioplasty implant and graft; Z95.810 Presence of automatic (implantable) cardiac defibrillator; Z87.01 Personal history of pneumonia (recurrent); Z83.6 Family history of other diseases of the respiratory system; Z80.9 Family history of malignant neoplasm, unspecified; Z82.49 Family history of ischemic heart disease and other diseases of the circulatory system; Z88.1 Allergy status to other antibiotic agents; Z79.899 Other long term (current) drug therapy; Z79.82 Long term (current) use of aspirin; Z68.30 Body mass index [BMI] 30.0-30.9, adult

== ENCOUNTER → 2017-07-24 | Outpatient (CLI) | payer MEDICARE ==
[~2017-07-24] MED LIST changes: +AMINOPHYLLIN200 MG PO; +ASPIR LOW81 MG PO; +FUROSEMIDE20 M1 PO
== END | disposition home or self-care (01) ==
LOC: RESCLI 01:21
DX: I50.22 Chronic systolic (congestive) heart failure (principal); N40.1 Benign prostatic hyperplasia with lower urinary tract symptoms; K21.9 Gastro-esophageal reflux disease without esophagitis; I25.10 Atherosclerotic heart disease of native coronary artery without angina pectoris; E78.5 Hyperlipidemia, unspecified; E03.9 Hypothyroidism, unspecified; I48.0 Paroxysmal atrial fibrillation; J30.2 Other seasonal allergic rhinitis; J44.9 Chronic obstructive pulmonary disease, unspecified; R00.1 Bradycardia, unspecified; N18.3 Chronic kidney disease, stage 3 (moderate)

== ENCOUNTER → 2017-09-18 | Outpatient (CLI) | payer MEDICARE | END | disposition home or self-care (01) | LOC: RESCLI 03:49 | DX: I50.22 Chronic systolic (congestive) heart failure (principal); N18.3 Chronic kidney disease, stage 3 (moderate); N40.1 Benign prostatic hyperplasia with lower urinary tract symptoms; K21.9 Gastro-esophageal reflux disease without esophagitis; I25.10 Atherosclerotic heart disease of native coronary artery without angina pectoris; E78.5 Hyperlipidemia, unspecified; E03.9 Hypothyroidism, unspecified; I48.0 Paroxysmal atrial fibrillation; J30.2 Other seasonal allergic rhinitis; J44.9 Chronic obstructive pulmonary disease, unspecified; R00.1 Bradycardia, unspecified; E83.42 Hypomagnesemia; N39.0 Urinary tract infection, site not specified; R31.9 Hematuria, unspecified ==

== ENCOUNTER 2017-11-07 12:51 | Emergency (ER) | payer MEDICARE ==
[~2017-11-07] VITALS: Ht 187.9 cm; Wt 104.3 kg
[2017-11-07 12:58] VITALS: BP 127/69
[2017-11-07] MEDS ORDERED: ROBAXIN500 M1 PO (13:22)
[2017-11-07] MEDS ORDERED: MEDROL DOSEPAK4 MG PO (13:22)
== END 2017-11-07 14:18 | disposition home or self-care (01) ==
LOC: ED 12:51
DX: S39.012A Strain of muscle, fascia and tendon of lower back, initial encounter (principal); M54.30 Sciatica, unspecified side; Z88.1 Allergy status to other antibiotic agents; Z79.82 Long term (current) use of aspirin; Z79.899 Other long term (current) drug therapy; X58.XXXA Exposure to other specified factors, initial encounter; Y93.89 Activity, other specified; Y92.89 Other specified places as the place of occurrence of the external cause; Y99.8 Other external cause status

== ENCOUNTER → 2017-12-13 | Outpatient (CLI) | payer MEDICARE ==
[~2017-12-13] MED LIST changes: +MEDROL DOSEPAK4 MG PO; +OXYCODONE HCL10 M1 PO; +ROBAXIN500 M1 PO; +TYLENOL325 M1 PO
== END | disposition home or self-care (01) ==
LOC: RESCLI 03:29
DX: I50.22 Chronic systolic (congestive) heart failure (principal); N40.1 Benign prostatic hyperplasia with lower urinary tract symptoms; K21.9 Gastro-esophageal reflux disease without esophagitis; I25.10 Atherosclerotic heart disease of native coronary artery without angina pectoris; E78.5 Hyperlipidemia, unspecified; E03.9 Hypothyroidism, unspecified; I48.0 Paroxysmal atrial fibrillation; J30.2 Other seasonal allergic rhinitis; J44.9 Chronic obstructive pulmonary disease, unspecified; E83.42 Hypomagnesemia; J20.9 Acute bronchitis, unspecified; N18.3 Chronic kidney disease, stage 3 (moderate); R00.1 Bradycardia, unspecified

== ENCOUNTER 2018-01-13 10:09 | Emergency (ER) | payer MEDICARE ==
[~2018-01-13] VITALS: Ht 187.9 cm; Wt 104.3 kg
[~2018-01-13 10:09] MED LIST changes: -OXYCODONE HCL10 M1 PO; -TYLENOL325 M1 PO
[2018-01-13 11:20] VITALS: BP 136/50
== END 2018-01-13 11:33 | disposition short-term general hospital (02) ==
LOC: ED 10:09
DX: T23.201A Burn of second degree of right hand, unspecified site, initial encounter (principal); T24.221A Burn of second degree of right knee, initial encounter; I13.0 Hypertensive heart and chronic kidney disease with heart failure and stage 1 through stage 4 chronic kidney disease, or unspecified chronic kidney disease; N18.9 Chronic kidney disease, unspecified; I50.9 Heart failure, unspecified; J44.9 Chronic obstructive pulmonary disease, unspecified; K21.9 Gastro-esophageal reflux disease without esophagitis; E03.9 Hypothyroidism, unspecified; E78.5 Hyperlipidemia, unspecified; I48.0 Paroxysmal atrial fibrillation; Z88.1 Allergy status to other antibiotic agents; Z79.899 Other long term (current) drug therapy; Z79.82 Long term (current) use of aspirin; X08.8XXA Exposure to other specified smoke, fire and flames, initial encounter; Y93.89 Activity, other specified; Y92.89 Other specified places as the place of occurrence of the external cause; Y99.8 Other external cause status

== ENCOUNTER 2018-02-06 16:40 | Emergency (ER) | payer MEDICARE ==
[~2018-02-06] VITALS: Wt 102.1 kg
[2018-02-06 17:57] LABS: BASO % 0.2 % (0.0-1.0); EOS % 0.1 % (1.0-4.0); HEMATOCRIT 42.8 % (42.0-52.0); LYMPH # 1.1 10*3/uL (1.3-4.4); LYMPH % 8.8 % (27.0-41.0); MEAN CELL VOLUME 93.4 fl (80.0-94.0); MEAN CORPUSCULAR HGB 30.6 pg (27.0-31.0); MEAN CORPUSCULAR HGB CONC 32.7 g/dl (33.0-37.0); MEAN PLATELET VOLUME 9.6 fl (9.6-12.3); MONO % 7.6 % (3.0-9.0); NEUT # 10.7 10*3/uL (2.3-7.9); NEUT % 82.8 % (47.0-73.0); PLATELET COUNT AUTOMATED 356 10*3/uL (130-400); RED BLOOD COUNT 4.58 10*6/uL (4.50-5.90); RED CELL DISTRI WIDTH 14.6 % (0-14.5); WHITE BLOOD COUNT 12.9 10*3/uL (4.8-10.8)
[2018-02-06 18:07] LABS: ACT PARTIAL THROMBO TIME 27.1 SECONDS (20.8-31.5); INTERNATIONAL NORM RATIO 1.1 (2.0-3.5)
[2018-02-06 18:16] LABS: ALBUMIN 2.6 gm/dl (3.1-4.5); ALKALINE PHOSPHATASE 123 U/L (45-117); BUN 34 mg/dl (7-24); CHLORIDE 106 mmol/L (98-107); CREATININE 1.31 mg/dL (0.70-1.30); POTASSIUM 3.7 mmol/L (3.5-5.1); SGOT/AST 48 IU/L (3-35); SGPT/ALT 74 U/L (12-78); SODIUM 144 mmol/L (136-145); TOTAL PROTEIN 6.9 gm/dL (6.4-8.2)
[2018-02-06] MEDS ORDERED: TYLENOL325 M1 PO (19:11)
[2018-02-06] MEDS ORDERED: OXYCODONE HCL10 M1 PO (19:41)
[2018-02-06 19:45] VITALS: BP 115/68
== END 2018-02-06 19:58 | disposition other institution (70) ==
LOC: ED 16:40
PROVIDERS: Emergency Medicine
DX: R53.1 Weakness (principal); R62.7 Adult failure to thrive; L89.519 Pressure ulcer of right ankle, unspecified stage; L89.899 Pressure ulcer of other site, unspecified stage; R06.02 Shortness of breath; I13.0 Hypertensive heart and chronic kidney disease with heart failure and stage 1 through stage 4 chronic kidney disease, or unspecified chronic kidney disease; I50.9 Heart failure, unspecified; N18.9 Chronic kidney disease, unspecified; J44.9 Chronic obstructive pulmonary disease, unspecified; I25.10 Atherosclerotic heart disease of native coronary artery without angina pectoris; I48.91 Unspecified atrial fibrillation; I42.9 Cardiomyopathy, unspecified; K21.9 Gastro-esophageal reflux disease without esophagitis; E78.5 Hyperlipidemia, unspecified; E03.9 Hypothyroidism, unspecified; I48.0 Paroxysmal atrial fibrillation; L89.529 Pressure ulcer of left ankle, unspecified stage; Z87.891 Personal history of nicotine dependence; Z95.0 Presence of cardiac pacemaker; Z88.1 Allergy status to other antibiotic agents; Z79.2 Long term (current) use of antibiotics; Z79.899 Other long term (current) drug therapy; Z79.82 Long term (current) use of aspirin

== ENCOUNTER → 2018-06-04 | Outpatient (CLI) | payer MEDICARE ==
[~2018-06-04] MED LIST changes: +OXYCODONE HCL10 M1 PO; +TYLENOL325 M1 PO
== END | disposition home or self-care (01) ==
LOC: WOUNDCARE 02:35
DX: L89.622 Pressure ulcer of left heel, stage 2 (principal); S01.01XD Laceration without foreign body of scalp, subsequent encounter; I13.0 Hypertensive heart and chronic kidney disease with heart failure and stage 1 through stage 4 chronic kidney disease, or unspecified chronic kidney disease; I50.9 Heart failure, unspecified; N18.9 Chronic kidney disease, unspecified; J44.9 Chronic obstructive pulmonary disease, unspecified; E78.5 Hyperlipidemia, unspecified; E03.9 Hypothyroidism, unspecified; W22.09XD Striking against other stationary object, subsequent encounter

== ENCOUNTER → 2018-08-06 | Outpatient (CLI) | payer OTHER | END | disposition home or self-care (01) | LOC: WOUNDCARE 02:38 | DX: S01.01XD Laceration without foreign body of scalp, subsequent encounter (principal); L89.622 Pressure ulcer of left heel, stage 2; I12.9 Hypertensive chronic kidney disease with stage 1 through stage 4 chronic kidney disease, or unspecified chronic kidney disease; N18.9 Chronic kidney disease, unspecified; I50.9 Heart failure, unspecified; J44.9 Chronic obstructive pulmonary disease, unspecified; E78.5 Hyperlipidemia, unspecified; E03.9 Hypothyroidism, unspecified; W22.09XD Striking against other stationary object, subsequent encounter ==

== ENCOUNTER → 2018-11-18 | Outpatient (CLI) | payer OTHER | END | disposition home or self-care (01) | LOC: RESCLI 02:06 | DX: I13.0 Hypertensive heart and chronic kidney disease with heart failure and stage 1 through stage 4 chronic kidney disease, or unspecified chronic kidney disease (principal); I50.22 Chronic systolic (congestive) heart failure; N18.3 Chronic kidney disease, stage 3 (moderate); K21.9 Gastro-esophageal reflux disease without esophagitis; I25.10 Atherosclerotic heart disease of native coronary artery without angina pectoris; E78.5 Hyperlipidemia, unspecified; E03.9 Hypothyroidism, unspecified; I48.0 Paroxysmal atrial fibrillation; J30.2 Other seasonal allergic rhinitis; J44.9 Chronic obstructive pulmonary disease, unspecified; E83.42 Hypomagnesemia; L89.610 Pressure ulcer of right heel, unstageable; L89.620 Pressure ulcer of left heel, unstageable; T23.361D Burn of third degree of back of right hand, subsequent encounter; T23.37 Burn of third degree of wrist; N40.0 Benign prostatic hyperplasia without lower urinary tract symptoms; M17.10 Unilateral primary osteoarthritis, unspecified knee; K59.00 Constipation, unspecified; Z79.899 Other long term (current) drug therapy; Z88.8 Allergy status to other drugs, medicaments and biological substances ==

== ENCOUNTER → 2019-03-03 | Outpatient (CLI) | payer OTHER ==
[2019-03-03 15:13] LABS: BASO % 0.3 % (0.0-1.0); EOS # 0.2 10*3/uL (0.0-0.4); HEMATOCRIT 45.3 % (42.0-52.0); HEMOGLOBIN 14.5 g/dl (14.0-18.0); LYMPH # 1.9 10*3/uL (1.3-4.4); MEAN CELL VOLUME 93.2 fl (80.0-94.0); MEAN CORPUSCULAR HGB 29.8 pg (27.0-31.0); MEAN PLATELET VOLUME 10.9 fl (9.6-12.3); MONO # 0.6 10*3/uL (0.1-1.0); MONO % 6.2 % (3.0-9.0); NEUT # 6.4 10*3/uL (2.3-7.9); NEUT % 70.2 % (47.0-73.0); PLATELET COUNT AUTOMATED 218 10*3/uL (130-400); RED BLOOD COUNT 4.86 10*6/uL (4.50-5.90); RED CELL DISTRI WIDTH 13.2 % (0-14.5); WHITE BLOOD COUNT 9.1 10*3/uL (4.8-10.8)
[2019-03-03 15:54] LABS: ALBUMIN 3.5 gm/dl (3.1-4.5); ALKALINE PHOSPHATASE 111 U/L (45-117); BUN 30 mg/dl (7-24); CHLORIDE 109 mmol/L (98-107); CREATININE 1.22 mg/dL (0.70-1.30); POTASSIUM 4.7 mmol/L (3.5-5.1); SGOT/AST 39 IU/L (3-35); SGPT/ALT 43 U/L (12-78); SODIUM 142 mmol/L (136-145); TOTAL PROTEIN 7.4 gm/dL (6.4-8.2)
== END | disposition home or self-care (01) ==
LOC: RESCLI 01:35
PROVIDERS: Internal Medicine
DX: Z23 Encounter for immunization (principal); I13.0 Hypertensive heart and chronic kidney disease with heart failure and stage 1 through stage 4 chronic kidney disease, or unspecified chronic kidney disease; K59.00 Constipation, unspecified; K21.9 Gastro-esophageal reflux disease without esophagitis; I25.10 Atherosclerotic heart disease of native coronary artery without angina pectoris; I50.22 Chronic systolic (congestive) heart failure; E03.9 Hypothyroidism, unspecified; I48.0 Paroxysmal atrial fibrillation; E83.42 Hypomagnesemia; N40.0 Benign prostatic hyperplasia without lower urinary tract symptoms; Z79.899 Other long term (current) drug therapy; N18.3 Chronic kidney disease, stage 3 (moderate); J44.9 Chronic obstructive pulmonary disease, unspecified; Z88.1 Allergy status to other antibiotic agents

== ENCOUNTER 2019-05-01 21:50 | Inpatient (IN) | payer MEDICARE ==
[~2019-05-01] VITALS: Ht 187.9 cm; Wt 96.8 kg
[2019-05-01 21:56] VITALS: BP 141/93
[2019-05-01] MEDS ORDERED: OMEPRAZOLE40 MG PO (22:27)
[2019-05-01] MEDS ORDERED: MAGNESIUM OXID400 MG PO (22:28)
[2019-05-01] MEDS ORDERED: LISINOPRIL10 M1 PO (22:29)
[2019-05-01 22:32] LABS: BILIRUBIN NEGATIVE (NEGATIVE); BLOOD 3+ (NEGATIVE); CLARITY SL CLOUDY (CLEAR); COLOR YELLOW (YELLOW); GLUCOSE NEGATIVE (NEGATIVE); KETONE TRACE (NEGATIVE); LEUKO ESTERASE 2+ (NEGATIVE); NITRITE NEGATIVE (NEGATIVE); SPECIFIC GRAVITY 1.025 (1.005-1.030); UROBILINOGEN 0.2 E.U./dl (0.2-1.0)
[2019-05-01 22:40] LABS: BACTERIA TRACE; RBC 41-50 rbc/hpf (0-2); WBC 31-40 wbc/hpf (0-5)
[2019-05-01 22:49] LABS: HEMATOCRIT 40.3 % (42.0-52.0); HEMOGLOBIN 13.1 g/dl (14.0-18.0); MEAN CORPUSCULAR HGB 29.6 pg (27.0-31.0); MEAN CORPUSCULAR HGB CONC 32.5 g/dl (33.0-37.0); MEAN PLATELET VOLUME 11.3 fl (9.6-12.3); PLATELET COUNT AUTOMATED 117 10*3/uL (130-400); RED BLOOD COUNT 4.43 10*6/uL (4.50-5.90); RED CELL DISTRI WIDTH 12.6 % (0-14.5); WHITE BLOOD COUNT 9.5 10*3/uL (4.8-10.8)
[2019-05-01 22:57] LABS: ACT PARTIAL THROMBO TIME 29.2 SECONDS (20.0-32.1)
[2019-05-01 23:02] LABS: CREATININE 1.83 mg/dL (0.70-1.30); TOTAL PROTEIN 6.5 gm/dL (6.4-8.2)
[2019-05-01 23:03] LABS: TROPONIN I 0.035 ng/ml (<0.045)
[2019-05-01 23:07] LABS: PLATELET SUFFICIENCY NORMAL (NORMAL); TOTAL CELLS COUNTED 100 #CELLS
[2019-05-01 23:35] VITALS: BP 97/61
[2019-05-01 23:45] VITALS: BP 97/61
[2019-05-02] VITALS (14 sets, daily range): BP systolic 92–145; BP diastolic 56–89
[2019-05-02] MEDS ORDERED: METOPROLOL TART75 MG PO (01:07)
[2019-05-02 05:07] LABS: ALBUMIN 3.1 gm/dl (3.1-4.5); CREATININE 1.86 mg/dL (0.70-1.30); PHOSPHOROUS 2.7 mg/dL (2.5-4.9); POTASSIUM 3.9 mmol/L (3.5-5.1); TOTAL PROTEIN 6.8 gm/dL (6.4-8.2)
[2019-05-02 05:12] LABS: THYROID STIM HORMONE (HS) 0.44 uIU/ml (0.358-4.75)
[2019-05-02 06:19] LABS: HEMATOCRIT 43.1 % (42.0-52.0); HEMOGLOBIN 13.6 g/dl (14.0-18.0); MEAN CELL VOLUME 90.9 fl (80.0-94.0); MEAN CORPUSCULAR HGB 28.7 pg (27.0-31.0); MEAN CORPUSCULAR HGB CONC 31.6 g/dl (33.0-37.0); MEAN PLATELET VOLUME 11.6 fl (9.6-12.3); PLATELET COUNT AUTOMATED 125 10*3/uL (130-400); RED BLOOD COUNT 4.74 10*6/uL (4.50-5.90); RED CELL DISTRI WIDTH 12.9 % (0-14.5); WHITE BLOOD COUNT 10.2 10*3/uL (4.8-10.8)
[2019-05-02 06:43] LABS: VITAMIN D, 25-HYDROXY 17.8 ng/mL (30-100)
[2019-05-02 07:21] LABS: PLATELET SUFFICIENCY LOW (NORMAL); TOTAL CELLS COUNTED 100 #CELLS
[2019-05-03 04:00] VITALS: BP 158/83
[2019-05-03 06:14] LABS: BASO % 0.1 % (0.0-1.0); CREATININE 1.6 mg/dL (0.70-1.30); EOS % 0.1 % (1.0-4.0); HEMATOCRIT 39.6 % (42.0-52.0); HEMOGLOBIN 12.8 g/dl (14.0-18.0); LYMPH # 0.9 10*3/uL (1.3-4.4); LYMPH % 9.6 % (27.0-41.0); MEAN CELL VOLUME 89.6 fl (80.0-94.0); MEAN CORPUSCULAR HGB CONC 32.3 g/dl (33.0-37.0); MONO # 0.8 10*3/uL (0.1-1.0); MONO % 8.6 % (3.0-9.0); NEUT # 7.5 10*3/uL (2.3-7.9); NEUT % 81.4 % (47.0-73.0); PLATELET COUNT AUTOMATED 117 10*3/uL (130-400); POTASSIUM 3.6 mmol/L (3.5-5.1); RED BLOOD COUNT 4.42 10*6/uL (4.50-5.90); RED CELL DISTRI WIDTH 13.2 % (0-14.5); WHITE BLOOD COUNT 9.2 10*3/uL (4.8-10.8)
[2019-05-03 08:00] VITALS: BP 144/93
[2019-05-03 12:00] VITALS: BP 143/82
[2019-05-03 16:00] VITALS: BP 141/83
[2019-05-03 20:00] VITALS: BP 126/78
[2019-05-04] VITALS (7 sets, daily range): BP systolic 80–101; BP diastolic 46–68
[2019-05-04 06:48] LABS: BASO % 0.2 % (0.0-1.0); EOS % 0.5 % (1.0-4.0); HEMATOCRIT 37.7 % (42.0-52.0); HEMOGLOBIN 12.2 g/dl (14.0-18.0); LYMPH # 0.6 10*3/uL (1.3-4.4); LYMPH % 7.4 % (27.0-41.0); MEAN CELL VOLUME 89.5 fl (80.0-94.0); MEAN CORPUSCULAR HGB CONC 32.4 g/dl (33.0-37.0); MONO % 11.5 % (3.0-9.0); NEUT # 6.7 10*3/uL (2.3-7.9); NEUT % 79.9 % (47.0-73.0); PLATELET COUNT AUTOMATED 120 10*3/uL (130-400); RED BLOOD COUNT 4.21 10*6/uL (4.50-5.90); RED CELL DISTRI WIDTH 13.3 % (0-14.5); WHITE BLOOD COUNT 8.4 10*3/uL (4.8-10.8)
[2019-05-04 07:27] LABS: CREATININE 1.63 mg/dL (0.70-1.30); POTASSIUM 3.6 mmol/L (3.5-5.1)
[2019-05-04] MEDS ORDERED: METOPROLOL SUCC25 M2 PO (19:13)
[2019-05-04] MEDS ORDERED: MYCAMINE100 MG IV (19:13)
[2019-05-04] MEDS ORDERED: TOBRADEX 0.1%-0.5 ML OPH (19:13)
[2019-05-04] MEDS ORDERED: Vitamin D PO (19:13)
[2019-05-04] MEDS ORDERED: IMDUR SA30 MG PO (19:13)
[2019-05-04] MEDS ORDERED: APRESOLINE10 MG PO (19:13)
[2019-05-07 20:04] LABS: RESULT 1 Candida albicans (.)
== END 2019-05-04 21:23 | disposition short-term general hospital (02) | DRG 871 ==
LOC: ED 21:50 → EDHOLD 23:24 → ED 23:24 → EDHOLD 23:41 → 5E 23:41 → ICCU 05-02 00:09 → EDHOLD 05-02 00:09 → ICCU 05-02 00:10
PROVIDERS: Emergency Medicine; Family Medicine; Internal Medicine; Student in an Organized Health Care Education/Training Program; ADMIT Internal Medicine
DX: A41.9 Sepsis, unspecified organism (principal); G93.41 Metabolic encephalopathy; N17.0 Acute kidney failure with tubular necrosis; E44.0 Moderate protein-calorie malnutrition; I13.0 Hypertensive heart and chronic kidney disease with heart failure and stage 1 through stage 4 chronic kidney disease, or unspecified chronic kidney disease; B49 Unspecified mycosis; N13.6 Pyonephrosis; I50.20 Unspecified systolic (congestive) heart failure; I42.8 Other cardiomyopathies; I45.2 Bifascicular block; R65.20 Severe sepsis without septic shock; D64.9 Anemia, unspecified; D69.6 Thrombocytopenia, unspecified; D72.9 Disorder of white blood cells, unspecified; D72.810 Lymphocytopenia; R73.9 Hyperglycemia, unspecified; E80.6 Other disorders of bilirubin metabolism; Z66 Do not resuscitate; Z51.5 Encounter for palliative care; K21.9 Gastro-esophageal reflux disease without esophagitis; E78.5 Hyperlipidemia, unspecified; M54.30 Sciatica, unspecified side; J44.9 Chronic obstructive pulmonary disease, unspecified; I48.0 Paroxysmal atrial fibrillation; N40.0 Benign prostatic hyperplasia without lower urinary tract symptoms; E53.8 Deficiency of other specified B group vitamins; E55.9 Vitamin D deficiency, unspecified; E03.9 Hypothyroidism, unspecified; J30.2 Other seasonal allergic rhinitis; N18.3 Chronic kidney disease, stage 3 (moderate); R32 Unspecified urinary incontinence; Z88.1 Allergy status to other antibiotic agents; Z87.01 Personal history of pneumonia (recurrent); Z82.5 Family history of asthma and other chronic lower respiratory diseases; Z82.49 Family history of ischemic heart disease and other diseases of the circulatory system; Z80.8 Family history of malignant neoplasm of other organs or systems; Z79.899 Other long term (current) drug therapy; Z68.27 Body mass index [BMI] 27.0-27.9, adult

== ENCOUNTER 2019-07-06 09:09 | Emergency (ER) | payer MEDICARE ==
[~2019-07-06] VITALS: Ht 187.9 cm; Wt 97.5 kg
[~2019-07-06 09:09] MED LIST changes: +APRESOLINE10 MG PO; +IMDUR SA30 MG PO; +MAGNESIUM OXID400 MG PO; +METOPROLOL SUCC25 M2 PO; +METOPROLOL TART75 MG PO; +OMEPRAZOLE40 MG PO; +TOBRADEX 0.1%-0.5 ML OPH; +Vitamin D PO
[2019-07-06 09:10] VITALS: BP 120/62
[2019-07-06 09:46] LABS: BASO % 0.3 % (0.0-1.0); EOS # 0.1 10*3/uL (0.0-0.4); EOS % 1.6 % (1.0-4.0); HEMATOCRIT 34.8 % (42.0-52.0); LYMPH # 1.5 10*3/uL (1.3-4.4); LYMPH % 24.4 % (27.0-41.0); MEAN CELL VOLUME 92.3 fl (80.0-94.0); MEAN CORPUSCULAR HGB 29.4 pg (27.0-31.0); MEAN CORPUSCULAR HGB CONC 31.9 g/dl (33.0-37.0); MEAN PLATELET VOLUME 10.9 fl (9.6-12.3); MONO # 0.5 10*3/uL (0.1-1.0); MONO % 8.3 % (3.0-9.0); NEUT % 65.2 % (47.0-73.0); PLATELET COUNT AUTOMATED 189 10*3/uL (130-400); RED BLOOD COUNT 3.77 10*6/uL (4.50-5.90); RED CELL DISTRI WIDTH 14.3 % (0-14.5); WHITE BLOOD COUNT 6.2 10*3/uL (4.8-10.8)
[2019-07-06 10:00] LABS: ACT PARTIAL THROMBO TIME 27.1 SECONDS (20.0-32.1); INTERNATIONAL NORM RATIO 1.1 (2.0-3.5)
[2019-07-06 10:01] LABS: CREATININE 1.61 mg/dL (0.70-1.30); POTASSIUM 4.7 mmol/L (3.5-5.1); TOTAL PROTEIN 6.5 gm/dL (6.4-8.2)
[2019-07-06 10:28] LABS: BILIRUBIN NEGATIVE (NEGATIVE); BLOOD 3+ (NEGATIVE); CLARITY TURBID (CLEAR); COLOR RED (YELLOW); GLUCOSE NEGATIVE (NEGATIVE); KETONE NEGATIVE (NEGATIVE); UROBILINOGEN 0.2 E.U./dl (0.2-1.0)
[2019-07-06 10:29] LABS: LEUKO ESTERASE 2+ (NEGATIVE); NITRITE NEGATIVE (NEGATIVE); RBC TNTC rbc/hpf (0-2)
[2019-07-06 10:32] LABS: BACTERIA 2+; WBC 31-40 wbc/hpf (0-5)
[2019-07-06] MEDS ORDERED: KEFLEX500 M1 PO (11:10)
== END 2019-07-06 11:30 | disposition home or self-care (01) ==
LOC: ED 09:09
PROVIDERS: Physician Assistant
DX: N39.0 Urinary tract infection, site not specified (principal); K21.9 Gastro-esophageal reflux disease without esophagitis; J44.9 Chronic obstructive pulmonary disease, unspecified; N18.9 Chronic kidney disease, unspecified; E78.1 Pure hyperglyceridemia; I12.9 Hypertensive chronic kidney disease with stage 1 through stage 4 chronic kidney disease, or unspecified chronic kidney disease; Z88.1 Allergy status to other antibiotic agents; Z79.899 Other long term (current) drug therapy; Z79.2 Long term (current) use of antibiotics; Z98.890 Other specified postprocedural states; Z95.4 Presence of other heart-valve replacement

== ENCOUNTER → 2019-11-14 | Outpatient (CLI) | payer MEDICARE ==
[~2019-11-14] MED LIST changes: +KEFLEX500 M1 PO
== END | disposition home or self-care (01) ==
LOC: US 10-31 14:30 → RESCLI 09:45 → US 10:30
PROVIDERS: ATTEND Internal Medicine
DX: N39.0 Urinary tract infection, site not specified (principal)

== ENCOUNTER 2020-01-06 10:30 | Emergency (ER) | payer MEDICARE ==
[~2020-01-06] VITALS: Ht 187.9 cm; Wt 104.3 kg
[2020-01-06 10:40] VITALS: BP 169/84
[2020-01-06 11:03] LABS: BILIRUBIN Negative (Negative); BLOOD 3+ (Negative); CLARITY Clear (Clear); COLOR Yellow (Yellow); GLUCOSE Negative (Negative); KETONE Negative (Negative); LEUKO ESTERASE Trace (Negative); NITRITE Negative (Negative); PH 6.5 (4.5-8.0); SPECIFIC GRAVITY 1.015 (1.001-1.030)
[2020-01-06 11:12] LABS: RBC TNTC rbc/hpf (0-2)
== END 2020-01-06 12:03 | disposition home or self-care (01) ==
LOC: ED 10:30
PROVIDERS: Emergency Medicine
DX: R31.9 Hematuria, unspecified (principal); K21.9 Gastro-esophageal reflux disease without esophagitis; J44.9 Chronic obstructive pulmonary disease, unspecified; E78.1 Pure hyperglyceridemia; I12.9 Hypertensive chronic kidney disease with stage 1 through stage 4 chronic kidney disease, or unspecified chronic kidney disease; N18.9 Chronic kidney disease, unspecified; Z88.1 Allergy status to other antibiotic agents; Z79.2 Long term (current) use of antibiotics; Z79.899 Other long term (current) drug therapy; Z98.890 Other specified postprocedural states; Z95.810 Presence of automatic (implantable) cardiac defibrillator

== ENCOUNTER → 2020-01-08 | Outpatient (CLI) | payer MEDICARE | END | disposition home or self-care (01) | LOC: LAB 10:28 | PROVIDERS: ATTEND Student in an Organized Health Care Education/Training Program | DX: E03.9 Hypothyroidism, unspecified (principal) ==

== ENCOUNTER → 2020-01-23 | Outpatient (CLI) | payer MEDICARE | END | disposition home or self-care (01) | LOC: RESCLI 02:58 | PROVIDERS: ATTEND Internal Medicine | DX: E53.8 Deficiency of other specified B group vitamins (principal); E78.5 Hyperlipidemia, unspecified; I25.10 Atherosclerotic heart disease of native coronary artery without angina pectoris; N40.0 Benign prostatic hyperplasia without lower urinary tract symptoms; J30.2 Other seasonal allergic rhinitis; N20.1 Calculus of ureter; K21.9 Gastro-esophageal reflux disease without esophagitis; I48.0 Paroxysmal atrial fibrillation; E55.9 Vitamin D deficiency, unspecified; E03.9 Hypothyroidism, unspecified; N18.30 Chronic kidney disease, stage 3 unspecified; Z79.899 Other long term (current) drug therapy; Z79.01 Long term (current) use of anticoagulants; Z79.82 Long term (current) use of aspirin ==

== ENCOUNTER → 2020-03-18 | Outpatient (CLI) | payer MEDICARE ==
[~2020-03-18] MED LIST changes: +AMIODARONE HYD200 MG PO; +ASPIRIN ADULT L81 M1 PO; +ATORVASTATIN CA40 M1 PO; +CETIRIZINE HYDR10 MG PO; +LASIX20 MG PO; +METOPROLOL TART50 M1 PO; +PREDNISONE10 MG PO; +PREDNISONE50 MG PO; +PROAIR HFA8.5 GM INH; +VITAMIN B-121000 MC2 PO; +VITAMIN D350 MC2 PO; +ZITHROMAX250 MG PO
[2020-03-18 12:12] LABS: BASO % 0.3 % (0.0-1.0); EOS # 0.2 10*3/uL (0.0-0.4); EOS % 2.2 % (1.0-4.0); HEMATOCRIT 40.9 % (42.0-52.0); LYMPH # 2.1 10*3/uL (1.3-4.4); LYMPH % 26.9 % (27.0-41.0); MEAN CELL VOLUME 85.2 fl (80.0-94.0); MEAN CORPUSCULAR HGB CONC 30.6 g/dl (33.0-37.0); MEAN PLATELET VOLUME 11.4 fl (9.6-12.3); MONO # 0.5 10*3/uL (0.1-1.0); NEUT # 4.9 10*3/uL (2.3-7.9); NEUT % 63.2 % (47.0-73.0); PLATELET COUNT AUTOMATED 219 10*3/uL (130-400); RED CELL DISTRI WIDTH 14.6 % (0-14.5); WHITE BLOOD COUNT 7.7 10*3/uL (4.8-10.8)
[2020-03-18 12:38] LABS: ALBUMIN 3.7 gm/dl (3.1-4.5); ALKALINE PHOSPHATASE 94 U/L (45-117); BUN 24 mg/dl (7-24); CHLORIDE 109 mmol/L (98-107); CHOLESTEROL 129 mg/dL (<200); CREATININE 1.25 mg/dL (0.70-1.30); FREE T4 1.32 ng/dl (0.76-1.46); HDL CHOLESTEROL 51 mg/dl (40-60); LDL CHOLESTEROL 54 mg/dL (9-159); POTASSIUM 4.1 mmol/L (3.5-5.1); SGOT/AST 25 IU/L (3-35); SGPT/ALT 31 U/L (12-78); SODIUM 140 mmol/L (136-145); TOTAL PROTEIN 7.6 gm/dL (6.4-8.2); TRIGLYCERIDES 120 mg/dl (<150); VLDL CHOLESTEROL 24 mg/dL (6-40)
[2020-03-18 13:15] LABS: VITAMIN D, 25-HYDROXY 25.5 ng/mL (30-100)
== END | disposition home or self-care (01) ==
LOC: LAB 11:07
PROVIDERS: Student in an Organized Health Care Education/Training Program; ATTEND Internal Medicine Nephrology
DX: I25.10 Atherosclerotic heart disease of native coronary artery without angina pectoris (principal); E03.9 Hypothyroidism, unspecified; E78.5 Hyperlipidemia, unspecified; E53.8 Deficiency of other specified B group vitamins; N18.30 Chronic kidney disease, stage 3 unspecified; E55.9 Vitamin D deficiency, unspecified

== ENCOUNTER 2020-04-11 11:50 | Emergency (ER) | payer MEDICARE ==
[~2020-04-11] VITALS: Ht 187.9 cm; Wt 104.3 kg
[~2020-04-11 11:50] MED LIST changes: -AMIODARONE HYD200 MG PO; -ASPIRIN ADULT L81 M1 PO; -ATORVASTATIN CA40 M1 PO; -CETIRIZINE HYDR10 MG PO; -LASIX20 MG PO; -METOPROLOL TART50 M1 PO; -PREDNISONE10 MG PO; -PREDNISONE50 MG PO; -PROAIR HFA8.5 GM INH; -VITAMIN B-121000 MC2 PO; -VITAMIN D350 MC2 PO; -ZITHROMAX250 MG PO
[2020-04-11 12:36] LABS: BASO % 0.4 % (0.0-1.0); EOS # 0.2 10*3/uL (0.0-0.4); EOS % 2.1 % (1.0-4.0); HEMATOCRIT 38.4 % (42.0-52.0); LYMPH # 1.7 10*3/uL (1.3-4.4); MEAN CELL VOLUME 85.1 fl (80.0-94.0); MEAN CORPUSCULAR HGB 26.2 pg (27.0-31.0); MEAN CORPUSCULAR HGB CONC 30.7 g/dl (33.0-37.0); MONO # 0.6 10*3/uL (0.1-1.0); MONO % 7.6 % (3.0-9.0); NEUT # 5.8 10*3/uL (2.3-7.9); NEUT % 69.7 % (47.0-73.0); PLATELET COUNT AUTOMATED 211 10*3/uL (130-400); RED BLOOD COUNT 4.51 10*6/uL (4.50-5.90); RED CELL DISTRI WIDTH 15.2 % (0-14.5); WHITE BLOOD COUNT 8.3 10*3/uL (4.8-10.8)
[2020-04-11 12:51] LABS: ALBUMIN 3.2 gm/dl (3.1-4.5); CREATININE 1.4 mg/dL (0.70-1.30); POTASSIUM 4.1 mmol/L (3.5-5.1); TOTAL PROTEIN 6.8 gm/dL (6.4-8.2)
[2020-04-11] MEDS ORDERED: ZITHROMAX250 MG PO ×2 (13:17)
[2020-04-11] MEDS ORDERED: PREDNISONE50 MG PO ×2 (13:17)
[2020-04-11] MEDS ORDERED: PROAIR HFA8.5 GM INH (13:17)
[2020-04-11 13:21] VITALS: BP 106/70
== END 2020-04-11 13:34 | disposition home or self-care (01) ==
LOC: ED 11:50
PROVIDERS: Student in an Organized Health Care Education/Training Program
DX: J44.1 Chronic obstructive pulmonary disease with (acute) exacerbation (principal); K21.9 Gastro-esophageal reflux disease without esophagitis; E78.1 Pure hyperglyceridemia; I12.9 Hypertensive chronic kidney disease with stage 1 through stage 4 chronic kidney disease, or unspecified chronic kidney disease; N18.9 Chronic kidney disease, unspecified; Z88.1 Allergy status to other antibiotic agents; Z79.2 Long term (current) use of antibiotics; Z79.899 Other long term (current) drug therapy; Z95.0 Presence of cardiac pacemaker

== ENCOUNTER 2020-06-20 19:13 | Inpatient (IN) | payer MEDICARE ==
[~2020-06-20] VITALS: Ht 187.9 cm; Wt 104.3 kg
[2020-06-20 19:13] VITALS: BP 138/95
[~2020-06-20 19:13] MED LIST changes: +PREDNISONE50 MG PO; +PROAIR HFA8.5 GM INH; +ZITHROMAX250 MG PO
[2020-06-20 19:44] LABS: BASO % 0.4 % (0.0-1.0); EOS # 0.2 10*3/uL (0.0-0.4); EOS % 2.1 % (1.0-4.0); HEMATOCRIT 36.2 % (42.0-52.0); LYMPH # 2.1 10*3/uL (1.3-4.4); LYMPH % 27.3 % (27.0-41.0); MEAN CELL VOLUME 83.8 fl (80.0-94.0); MEAN CORPUSCULAR HGB 25.7 pg (27.0-31.0); MEAN CORPUSCULAR HGB CONC 30.7 g/dl (33.0-37.0); MEAN PLATELET VOLUME 10.7 fl (9.6-12.3); MONO # 0.5 10*3/uL (0.1-1.0); MONO % 7.1 % (3.0-9.0); NEUT # 4.8 10*3/uL (2.3-7.9); NEUT % 62.8 % (47.0-73.0); NUCLEATED RED BLOOD CELL 0.3 % (0.0-0.0); PLATELET COUNT AUTOMATED 263 10*3/uL (130-400); RED BLOOD COUNT 4.32 10*6/uL (4.50-5.90); RED CELL DISTRI WIDTH 15.8 % (0-14.5); WHITE BLOOD COUNT 7.6 10*3/uL (4.8-10.8)
[2020-06-20 20:00] LABS: ALBUMIN 3.2 gm/dl (3.1-4.5); ALKALINE PHOSPHATASE 95 U/L (45-117); BUN 27 mg/dl (7-24); CHLORIDE 117 mmol/L (98-107); CREATININE 1.37 mg/dL (0.70-1.30); SGOT/AST 16 IU/L (3-35); SGPT/ALT 18 U/L (12-78); SODIUM 145 mmol/L (136-145); TOTAL PROTEIN 6.9 gm/dL (6.4-8.2)
[2020-06-20 20:15] VITALS: BP 135/96
[2020-06-20 22:34] VITALS: BP 138/87
[2020-06-21] MEDS ORDERED: METOPROLOL TART50 M1 PO (01:50)
[2020-06-21] MEDS ORDERED: AMIODARONE HYD200 MG PO (01:53)
[2020-06-21] MEDS ORDERED: ATORVASTATIN CA40 M1 PO (01:53)
[2020-06-21] MEDS ORDERED: CETIRIZINE HYDR10 MG PO (01:54)
[2020-06-21 05:46] LABS: BUN 25 mg/dl (7-24); CHLORIDE 116 mmol/L (98-107); CREATININE 1.27 mg/dL (0.70-1.30); POTASSIUM 4.3 mmol/L (3.5-5.1); SODIUM 144 mmol/L (136-145)
[2020-06-21 06:09] LABS: HEMATOCRIT 34.9 % (42.0-52.0); LYMPH # 0.5 10*3/uL (1.3-4.4); LYMPH % 9.1 % (27.0-41.0); MEAN CELL VOLUME 83.7 fl (80.0-94.0); MEAN CORPUSCULAR HGB 25.2 pg (27.0-31.0); MEAN CORPUSCULAR HGB CONC 30.1 g/dl (33.0-37.0); MEAN PLATELET VOLUME 10.8 fl (9.6-12.3); MONO % 0.8 % (3.0-9.0); NEUT # 4.7 10*3/uL (2.3-7.9); NEUT % 89.7 % (47.0-73.0); PLATELET COUNT AUTOMATED 244 10*3/uL (130-400); RED BLOOD COUNT 4.17 10*6/uL (4.50-5.90); RED CELL DISTRI WIDTH 15.8 % (0-14.5); WHITE BLOOD COUNT 5.3 10*3/uL (4.8-10.8)
[2020-06-21 08:00] VITALS: BP 131/92
[2020-06-21] MEDS ORDERED: ASPIRIN ADULT L81 M1 PO (09:46)
[2020-06-21] MEDS ORDERED: VITAMIN B-121000 MC2 PO (09:47)
[2020-06-21] MEDS ORDERED: VITAMIN D350 MC2 PO (09:48)
[2020-06-21 12:00] VITALS: BP 118/75
[2020-06-21 16:00] VITALS: BP 118/77
[2020-06-21 20:24] VITALS: BP 110/74
[2020-06-22 00:04] VITALS: BP 103/72
[2020-06-22 08:00] VITALS: BP 115/84
[2020-06-22 12:00] VITALS: BP 110/75
[2020-06-22 16:00] VITALS: BP 118/76
[2020-06-22 19:47] VITALS: BP 95/63
[2020-06-22 21:30] VITALS: BP 110/78
[2020-06-23] VITALS (8 sets, daily range): BP systolic 90–136; BP diastolic 57–94
[2020-06-23 06:03] LABS: BUN 39 mg/dl (7-24); CHLORIDE 109 mmol/L (98-107); POTASSIUM 4.6 mmol/L (3.5-5.1); SODIUM 139 mmol/L (136-145)
[2020-06-23 06:12] LABS: HEMATOCRIT 35.4 % (42.0-52.0); MEAN CELL VOLUME 83.9 fl (80.0-94.0); MEAN CORPUSCULAR HGB 25.1 pg (27.0-31.0); MEAN CORPUSCULAR HGB CONC 29.9 g/dl (33.0-37.0); MEAN PLATELET VOLUME 10.7 fl (9.6-12.3); PLATELET COUNT AUTOMATED 262 10*3/uL (130-400); RED BLOOD COUNT 4.22 10*6/uL (4.50-5.90); WHITE BLOOD COUNT 12.5 10*3/uL (4.8-10.8)
[2020-06-23 07:20] LABS: BURR CELLS FEW; OVALOCYTES FEW; PLATELET SUFFICIENCY NORMAL (NORMAL); POLYCHROMASIA SLIGHT; TOTAL CELLS COUNTED 100 #CELLS
[2020-06-24 06:26] LABS: HEMATOCRIT 35.5 % (42.0-52.0); MEAN CELL VOLUME 82.8 fl (80.0-94.0); MEAN CORPUSCULAR HGB 25.4 pg (27.0-31.0); MEAN CORPUSCULAR HGB CONC 30.7 g/dl (33.0-37.0); MEAN PLATELET VOLUME 10.6 fl (9.6-12.3); NUCLEATED RED BLOOD CELL 0.2 % (0.0-0.0); PLATELET COUNT AUTOMATED 283 10*3/uL (130-400); RED BLOOD COUNT 4.29 10*6/uL (4.50-5.90); WHITE BLOOD COUNT 11.1 10*3/uL (4.8-10.8)
[2020-06-24 06:40] LABS: BUN 47 mg/dl (7-24); CHLORIDE 106 mmol/L (98-107); CREATININE 1.29 mg/dL (0.70-1.30); POTASSIUM 4.6 mmol/L (3.5-5.1); SODIUM 139 mmol/L (136-145)
[2020-06-24 06:56] LABS: OVALOCYTES FEW; PLATELET SUFFICIENCY NORMAL (NORMAL); TOTAL CELLS COUNTED 100 #CELLS
[2020-06-24 06:57] LABS: BURR CELLS FEW; POLYCHROMASIA SLIGHT
[2020-06-24 08:00] VITALS: BP 121/72
[2020-06-24] MEDS ORDERED: LISINOPRIL5 MG PO (11:43)
[2020-06-24] MEDS ORDERED: ZITHROMAX250 MG PO (11:43)
[2020-06-24] MEDS ORDERED: PREDNISONE10 MG PO (11:43)
[2020-06-24] MEDS ORDERED: LASIX20 MG PO (11:43)
[2020-06-24] MEDS ORDERED: METOPROLOL SUCC50 M1 PO (11:43)
[2020-06-24 12:00] VITALS: BP 125/67
== END 2020-06-24 14:06 | DRG 189 ==
LOC: ED 19:13 → 5E 21:21 → EDHOLD 21:21 → 5E 22:17
PROVIDERS: Hospitalist; Internal Medicine; ADMIT Internal Medicine; ATTEND Internal Medicine
DX: J96.00 Acute respiratory failure, unspecified whether with hypoxia or hypercapnia (principal); N17.0 Acute kidney failure with tubular necrosis; I13.0 Hypertensive heart and chronic kidney disease with heart failure and stage 1 through stage 4 chronic kidney disease, or unspecified chronic kidney disease; J44.1 Chronic obstructive pulmonary disease with (acute) exacerbation; E44.0 Moderate protein-calorie malnutrition; J98.11 Atelectasis; L97.911 Non-pressure chronic ulcer of unspecified part of right lower leg limited to breakdown of skin; I50.42 Chronic combined systolic (congestive) and diastolic (congestive) heart failure; Z68.30 Body mass index [BMI] 30.0-30.9, adult; N18.9 Chronic kidney disease, unspecified; Z20.822 Contact with and (suspected) exposure to COVID-19; J44.9 Chronic obstructive pulmonary disease, unspecified; K21.9 Gastro-esophageal reflux disease without esophagitis; I07.1 Rheumatic tricuspid insufficiency; N40.0 Benign prostatic hyperplasia without lower urinary tract symptoms; D69.6 Thrombocytopenia, unspecified; D64.9 Anemia, unspecified; E53.8 Deficiency of other specified B group vitamins; E55.9 Vitamin D deficiency, unspecified; I48.0 Paroxysmal atrial fibrillation; R73.9 Hyperglycemia, unspecified; S91.301A Unspecified open wound, right foot, initial encounter; X58.XXXA Exposure to other specified factors, initial encounter; Y93.89 Activity, other specified; Y92.89 Other specified places as the place of occurrence of the external cause; Y99.8 Other external cause status; Z82.5 Family history of asthma and other chronic lower respiratory diseases; Z82.49 Family history of ischemic heart disease and other diseases of the circulatory system; Z79.899 Other long term (current) drug therapy; Z79.82 Long term (current) use of aspirin; Z88.1 Allergy status to other antibiotic agents

== ENCOUNTER → 2020-09-08 | Outpatient (CLI) | payer MEDICARE ==
[~2020-09-08] MED LIST changes: +AMIODARONE HYD200 MG PO; +ASPIRIN ADULT L81 M1 PO; +ATORVASTATIN CA40 M1 PO; +CETIRIZINE HYDR10 MG PO; +LASIX20 MG PO; +METOPROLOL TART50 M1 PO; +PREDNISONE10 MG PO; +VITAMIN B-121000 MC2 PO; +VITAMIN D350 MC2 PO
== END | disposition home or self-care (01) ==
LOC: RESCLI 01:18
PROVIDERS: ATTEND Internal Medicine
DX: I11.0 Hypertensive heart disease with heart failure (principal); I50.22 Chronic systolic (congestive) heart failure; K21.9 Gastro-esophageal reflux disease without esophagitis; I25.10 Atherosclerotic heart disease of native coronary artery without angina pectoris; E78.5 Hyperlipidemia, unspecified; E03.9 Hypothyroidism, unspecified; I48.0 Paroxysmal atrial fibrillation; J30.2 Other seasonal allergic rhinitis; J44.9 Chronic obstructive pulmonary disease, unspecified; N40.0 Benign prostatic hyperplasia without lower urinary tract symptoms; E53.8 Deficiency of other specified B group vitamins; E83.42 Hypomagnesemia; Z79.82 Long term (current) use of aspirin; Z79.899 Other long term (current) drug therapy

== ENCOUNTER 2020-09-11 18:46 | Inpatient (IN) | payer MEDICARE, MEDICAID, SELFPAY ==
[~2020-09-11] VITALS: Ht 5.1 cm; Wt 104.4 kg
[2020-09-11 18:53] VITALS: BP 114/87
[2020-09-11 19:46] LABS: BASO % 0.3 % (0.0-1.0); EOS # 0.1 10*3/uL (0.0-0.4); HEMATOCRIT 37.4 % (42.0-52.0); LYMPH # 0.7 10*3/uL (1.3-4.4); LYMPH % 8.3 % (27.0-41.0); MEAN CELL VOLUME 83.1 fl (80.0-94.0); MEAN CORPUSCULAR HGB 24.9 pg (27.0-31.0); MEAN CORPUSCULAR HGB CONC 29.9 g/dl (33.0-37.0); MEAN PLATELET VOLUME 10.3 fl (9.6-12.3); MONO # 0.6 10*3/uL (0.1-1.0); MONO % 7.1 % (3.0-9.0); NEUT # 6.5 10*3/uL (2.3-7.9); PLATELET COUNT AUTOMATED 208 10*3/uL (130-400); RED CELL DISTRI WIDTH 17.6 % (0-14.5); WHITE BLOOD COUNT 7.8 10*3/uL (4.8-10.8)
[2020-09-11 20:04] LABS: ALBUMIN 3.5 gm/dl (3.1-4.5); CREATININE 1.48 mg/dL (0.70-1.30); TOTAL PROTEIN 6.7 gm/dL (6.4-8.2)
[2020-09-11 20:05] LABS: BILIRUBIN Negative (Negative); BLOOD Trace-Lysed (Negative); CLARITY Cloudy (Clear); COLOR Yellow (Yellow); GLUCOSE Negative (Negative); KETONE Negative (Negative); LEUKO ESTERASE 3+ (Negative); NITRITE Negative (Negative)
[2020-09-11 20:29] LABS: WBC TNTC wbc/hpf (0-5)
[2020-09-11 20:30] LABS: BACTERIA 2+
[2020-09-11 20:53] VITALS: BP 109/78
[2020-09-11 21:19] VITALS: BP 109/78
[2020-09-11 23:05] VITALS: BP 128/85
[2020-09-12 06:20] LABS: BASO % 0.2 % (0.0-1.0); EOS # 0.1 10*3/uL (0.0-0.4); EOS % 1.8 % (1.0-4.0); HEMATOCRIT 34.7 % (42.0-52.0); LYMPH # 0.8 10*3/uL (1.3-4.4); LYMPH % 13.2 % (27.0-41.0); MEAN CELL VOLUME 82.4 fl (80.0-94.0); MEAN CORPUSCULAR HGB 24.7 pg (27.0-31.0); MEAN PLATELET VOLUME 10.6 fl (9.6-12.3); MONO # 0.6 10*3/uL (0.1-1.0); MONO % 9.6 % (3.0-9.0); NEUT # 4.7 10*3/uL (2.3-7.9); PLATELET COUNT AUTOMATED 186 10*3/uL (130-400); RED BLOOD COUNT 4.21 10*6/uL (4.50-5.90); RED CELL DISTRI WIDTH 17.7 % (0-14.5); WHITE BLOOD COUNT 6.2 10*3/uL (4.8-10.8)
[2020-09-12 06:55] LABS: CHLORIDE 113 mmol/L (98-107); POTASSIUM 3.8 mmol/L (3.5-5.1); SODIUM 142 mmol/L (136-145)
[2020-09-12 07:10] LABS: BUN 24 mg/dl (7-24); CREATININE 1.37 mg/dL (0.70-1.30)
[2020-09-12 08:00] VITALS: BP 109/35
[2020-09-12 12:00] VITALS: BP 106/80
[2020-09-12 16:00] VITALS: BP 102/58
[2020-09-12 20:00] VITALS: BP 105/71
[2020-09-13] VITALS: BP 107/67
[2020-09-13 06:03] LABS: BUN 23 mg/dl (7-24); CHLORIDE 110 mmol/L (98-107); CREATININE 1.27 mg/dL (0.70-1.30); POTASSIUM 3.9 mmol/L (3.5-5.1); SODIUM 139 mmol/L (136-145)
[2020-09-13 06:15] LABS: BASO % 0.3 % (0.0-1.0); EOS # 0.1 10*3/uL (0.0-0.4); EOS % 1.8 % (1.0-4.0); HEMATOCRIT 35.1 % (42.0-52.0); LYMPH # 1.3 10*3/uL (1.3-4.4); LYMPH % 21.6 % (27.0-41.0); MEAN CELL VOLUME 82.6 fl (80.0-94.0); MEAN CORPUSCULAR HGB 24.9 pg (27.0-31.0); MEAN CORPUSCULAR HGB CONC 30.2 g/dl (33.0-37.0); MEAN PLATELET VOLUME 11.2 fl (9.6-12.3); MONO # 0.8 10*3/uL (0.1-1.0); MONO % 12.3 % (3.0-9.0); NEUT # 3.9 10*3/uL (2.3-7.9); NEUT % 63.7 % (47.0-73.0); PLATELET COUNT AUTOMATED 188 10*3/uL (130-400); RED BLOOD COUNT 4.25 10*6/uL (4.50-5.90); RED CELL DISTRI WIDTH 17.6 % (0-14.5); WHITE BLOOD COUNT 6.1 10*3/uL (4.8-10.8)
[2020-09-13 08:00] VITALS: BP 104/62
[2020-09-13 12:00] VITALS: BP 111/68
[2020-09-13 16:00] VITALS: BP 100/67
[2020-09-13 20:00] VITALS: BP 106/75
[2020-09-14] VITALS: BP 113/83
[2020-09-14 06:17] LABS: BASO % 0.3 % (0.0-1.0); EOS # 0.2 10*3/uL (0.0-0.4); EOS % 2.5 % (1.0-4.0); HEMATOCRIT 35.7 % (42.0-52.0); LYMPH # 1.5 10*3/uL (1.3-4.4); LYMPH % 25.2 % (27.0-41.0); MEAN CELL VOLUME 80.8 fl (80.0-94.0); MEAN CORPUSCULAR HGB 24.9 pg (27.0-31.0); MEAN CORPUSCULAR HGB CONC 30.8 g/dl (33.0-37.0); MEAN PLATELET VOLUME 10.8 fl (9.6-12.3); MONO # 0.7 10*3/uL (0.1-1.0); MONO % 11.4 % (3.0-9.0); NEUT # 3.7 10*3/uL (2.3-7.9); NEUT % 60.3 % (47.0-73.0); PLATELET COUNT AUTOMATED 225 10*3/uL (130-400); RED BLOOD COUNT 4.42 10*6/uL (4.50-5.90); RED CELL DISTRI WIDTH 17.2 % (0-14.5); WHITE BLOOD COUNT 6.1 10*3/uL (4.8-10.8)
[2020-09-14 06:23] LABS: BUN 23 mg/dl (7-24); CHLORIDE 109 mmol/L (98-107); CREATININE 1.31 mg/dL (0.70-1.30); POTASSIUM 3.9 mmol/L (3.5-5.1); SODIUM 139 mmol/L (136-145)
[2020-09-14 08:00] VITALS: BP 98/75
[2020-09-14] MEDS ORDERED: CEFUROXIME AXE500 MG PO ×2 (10:43)
[2020-09-14 12:00] VITALS: BP 110/73
== END 2020-09-14 13:05 | disposition home health service (06) | DRG 193 ==
LOC: ED 18:46 → 4E 21:11 → EDHOLD 21:11 → 4E 22:36
PROVIDERS: Emergency Medicine; Internal Medicine; ADMIT Family Medicine; ATTEND Family Medicine
DX: J18.9 Pneumonia, unspecified organism (principal); N17.0 Acute kidney failure with tubular necrosis; N39.0 Urinary tract infection, site not specified; L97.911 Non-pressure chronic ulcer of unspecified part of right lower leg limited to breakdown of skin; E44.1 Mild protein-calorie malnutrition; I13.0 Hypertensive heart and chronic kidney disease with heart failure and stage 1 through stage 4 chronic kidney disease, or unspecified chronic kidney disease; I48.0 Paroxysmal atrial fibrillation; N18.31 Chronic kidney disease, stage 3a; I50.9 Heart failure, unspecified; E80.6 Other disorders of bilirubin metabolism; E87.8 Other disorders of electrolyte and fluid balance, not elsewhere classified; D64.9 Anemia, unspecified; K21.9 Gastro-esophageal reflux disease without esophagitis; E78.5 Hyperlipidemia, unspecified; J44.9 Chronic obstructive pulmonary disease, unspecified; E03.9 Hypothyroidism, unspecified; N40.0 Benign prostatic hyperplasia without lower urinary tract symptoms; Z88.1 Allergy status to other antibiotic agents; Z82.5 Family history of asthma and other chronic lower respiratory diseases; Z79.51 Long term (current) use of inhaled steroids; Z79.82 Long term (current) use of aspirin; Z79.899 Other long term (current) drug therapy; Z68.29 Body mass index [BMI] 29.0-29.9, adult

== ENCOUNTER 2020-10-13 12:28 | Inpatient (IN) | payer MEDICARE, MEDICAID ==
[~2020-10-13] VITALS: Ht 187.9 cm; Wt 112.9 kg
[~2020-10-13 12:28] MED LIST changes: +CEFUROXIME AXE500 MG PO
[2020-10-13 12:44] VITALS: BP 131/72
[2020-10-13 13:15] LABS: BASO % 0.2 % (0.0-1.0); EOS % 0.1 % (1.0-4.0); HEMATOCRIT 35.6 % (42.0-52.0); LYMPH # 0.8 10*3/uL (1.3-4.4); LYMPH % 8.3 % (27.0-41.0); MEAN CELL VOLUME 79.6 fl (80.0-94.0); MEAN CORPUSCULAR HGB 23.9 pg (27.0-31.0); MEAN CORPUSCULAR HGB CONC 30.1 g/dl (33.0-37.0); MEAN PLATELET VOLUME 10.5 fl (9.6-12.3); MONO # 0.6 10*3/uL (0.1-1.0); MONO % 6.4 % (3.0-9.0); NEUT # 7.8 10*3/uL (2.3-7.9); NEUT % 84.8 % (47.0-73.0); NUCLEATED RED BLOOD CELL 0.2 % (0.0-0.0); PLATELET COUNT AUTOMATED 249 10*3/uL (130-400); RED BLOOD COUNT 4.47 10*6/uL (4.50-5.90); RED CELL DISTRI WIDTH 16.4 % (0-14.5); WHITE BLOOD COUNT 9.2 10*3/uL (4.8-10.8)
[2020-10-13 13:30] LABS: ALBUMIN 3.5 gm/dl (3.1-4.5); ALKALINE PHOSPHATASE 86 U/L (45-117); BUN 24 mg/dl (7-24); CHLORIDE 112 mmol/L (98-107); LIPASE 133 U/L (73-393); POTASSIUM 4.1 mmol/L (3.5-5.1); SGOT/AST 19 IU/L (3-35); SGPT/ALT 24 U/L (12-78); SODIUM 141 mmol/L (136-145); TOTAL PROTEIN 6.7 gm/dL (6.4-8.2)
[2020-10-13 13:34] LABS: TROPONIN I < 0.015 ng/ml (<0.045)
[2020-10-13 13:55] VITALS: BP 129/78
[2020-10-13 14:59] VITALS: BP 135/80
[2020-10-13 21:11] VITALS: BP 122/93
[2020-10-14] VITALS: BP 100/71
[2020-10-14 06:29] LABS: BASO % 0.3 % (0.0-1.0); EOS % 0.4 % (1.0-4.0); HEMATOCRIT 34.5 % (42.0-52.0); LYMPH # 1.1 10*3/uL (1.3-4.4); LYMPH % 9.4 % (27.0-41.0); MEAN CELL VOLUME 80.2 fl (80.0-94.0); MEAN CORPUSCULAR HGB 24.2 pg (27.0-31.0); MEAN CORPUSCULAR HGB CONC 30.1 g/dl (33.0-37.0); MONO # 1.3 10*3/uL (0.1-1.0); MONO % 11.7 % (3.0-9.0); NEUT # 8.8 10*3/uL (2.3-7.9); NEUT % 77.8 % (47.0-73.0); NUCLEATED RED BLOOD CELL 0.2 % (0.0-0.0); PLATELET COUNT AUTOMATED 236 10*3/uL (130-400); RED CELL DISTRI WIDTH 16.5 % (0-14.5); WHITE BLOOD COUNT 11.3 10*3/uL (4.8-10.8)
[2020-10-14 06:46] LABS: ALBUMIN 3.4 gm/dl (3.1-4.5); CREATININE 1.42 mg/dL (0.70-1.30); POTASSIUM 3.7 mmol/L (3.5-5.1); TOTAL PROTEIN 6.5 gm/dL (6.4-8.2)
[2020-10-14 06:50] LABS: FREE T4 1.36 ng/dl (0.76-1.46); THYROID STIM HORMONE (HS) 4.77 uIU/ml (0.358-4.75)
[2020-10-14 08:00] VITALS: BP 110/62
[2020-10-14 12:00] VITALS: BP 122/70
[2020-10-14 16:00] VITALS: BP 137/82
[2020-10-14 20:00] VITALS: BP 119/72
[2020-10-15] VITALS: BP 119/68
[2020-10-15 05:19] LABS: CREATININE 1.41 mg/dL (0.70-1.30); POTASSIUM 3.5 mmol/L (3.5-5.1); TOTAL PROTEIN 6.2 gm/dL (6.4-8.2)
[2020-10-15 06:35] LABS: BASO % 0.3 % (0.0-1.0); EOS # 0.1 10*3/uL (0.0-0.4); EOS % 1.2 % (1.0-4.0); HEMATOCRIT 33.4 % (42.0-52.0); LYMPH # 1.4 10*3/uL (1.3-4.4); LYMPH % 15.1 % (27.0-41.0); MEAN CELL VOLUME 79.1 fl (80.0-94.0); MEAN CORPUSCULAR HGB 23.7 pg (27.0-31.0); MEAN CORPUSCULAR HGB CONC 29.9 g/dl (33.0-37.0); MEAN PLATELET VOLUME 11.1 fl (9.6-12.3); MONO % 11.3 % (3.0-9.0); NEUT # 6.6 10*3/uL (2.3-7.9); NEUT % 71.8 % (47.0-73.0); PLATELET COUNT AUTOMATED 243 10*3/uL (130-400); RED BLOOD COUNT 4.22 10*6/uL (4.50-5.90); RED CELL DISTRI WIDTH 16.6 % (0-14.5); WHITE BLOOD COUNT 9.2 10*3/uL (4.8-10.8)
[2020-10-15 08:00] VITALS: BP 90/60
[2020-10-15 12:00] VITALS: BP 129/81
[2020-10-15 16:00] VITALS: BP 100/60
[2020-10-15 20:00] VITALS: BP 84/52
[2020-10-16] VITALS: BP 97/69
[2020-10-16 06:28] LABS: BASO % 0.3 % (0.0-1.0); EOS # 0.2 10*3/uL (0.0-0.4); EOS % 1.7 % (1.0-4.0); HEMATOCRIT 35.1 % (42.0-52.0); LYMPH # 1.5 10*3/uL (1.3-4.4); LYMPH % 16.4 % (27.0-41.0); MEAN CELL VOLUME 78.3 fl (80.0-94.0); MEAN CORPUSCULAR HGB 23.9 pg (27.0-31.0); MEAN CORPUSCULAR HGB CONC 30.5 g/dl (33.0-37.0); MEAN PLATELET VOLUME 10.6 fl (9.6-12.3); MONO # 0.9 10*3/uL (0.1-1.0); MONO % 10.1 % (3.0-9.0); NEUT # 6.6 10*3/uL (2.3-7.9); NEUT % 71.2 % (47.0-73.0); PLATELET COUNT AUTOMATED 277 10*3/uL (130-400); RED BLOOD COUNT 4.48 10*6/uL (4.50-5.90); RED CELL DISTRI WIDTH 16.4 % (0-14.5); WHITE BLOOD COUNT 9.3 10*3/uL (4.8-10.8)
[2020-10-16 06:39] LABS: ALBUMIN 3.2 gm/dl (3.1-4.5); CREATININE 1.48 mg/dL (0.70-1.30); POTASSIUM 3.4 mmol/L (3.5-5.1); TOTAL PROTEIN 6.5 gm/dL (6.4-8.2)
[2020-10-16 12:00] VITALS: BP 109/71
[2020-10-16 16:00] VITALS: BP 99/62
[2020-10-16 20:00] VITALS: BP 100/82; BP 120/69
[2020-10-17] VITALS (7 sets, daily range): BP systolic 96–118; BP diastolic 58–80
[2020-10-17 06:10] LABS: BASO % 0.4 % (0.0-1.0); EOS # 0.3 10*3/uL (0.0-0.4); EOS % 3.1 % (1.0-4.0); HEMATOCRIT 38.5 % (42.0-52.0); LYMPH # 1.8 10*3/uL (1.3-4.4); MEAN CELL VOLUME 80.2 fl (80.0-94.0); MEAN CORPUSCULAR HGB 23.5 pg (27.0-31.0); MEAN CORPUSCULAR HGB CONC 29.4 g/dl (33.0-37.0); MONO % 10.2 % (3.0-9.0); NEUT # 6.8 10*3/uL (2.3-7.9); NEUT % 67.9 % (47.0-73.0); PLATELET COUNT AUTOMATED 353 10*3/uL (130-400); RED CELL DISTRI WIDTH 16.3 % (0-14.5)
[2020-10-17 06:22] LABS: ALBUMIN 3.4 gm/dl (3.1-4.5); CREATININE 1.59 mg/dL (0.70-1.30); POTASSIUM 3.9 mmol/L (3.5-5.1); TOTAL PROTEIN 7.3 gm/dL (6.4-8.2)
[2020-10-18] VITALS: BP 90/65
[2020-10-18 06:09] LABS: CREATININE 1.63 mg/dL (0.70-1.30); POTASSIUM 3.9 mmol/L (3.5-5.1)
[2020-10-18 08:00] VITALS: BP 88/70
[2020-10-18 12:00] VITALS: BP 98/73
[2020-10-18] MEDS ORDERED: LISINOPRIL5 MG PO (14:06)
[2020-10-18] MEDS ORDERED: METOPROLOL SUCC50 M1 PO (14:06)
[2020-10-18] MEDS ORDERED: HYDROCODONE-AC1 EAC1 PO (14:06)
== END 2020-10-18 15:58 | DRG 291 ==
LOC: ED 12:28 → EDHOLD 14:27 → 4E 14:27 → EDHOLD 15:09 → 4E 20:29
PROVIDERS: Emergency Medicine; Internal Medicine; Social Worker Clinical; Student in an Organized Health Care Education/Training Program; ADMIT Student in an Organized Health Care Education/Training Program; ATTEND Student in an Organized Health Care Education/Training Program
PROC: 5A0945A Assistance with Respiratory Ventilation, 24-96 Consecutive Hours, High Flow/Velocity Cannula (ICD-10-PCS; principal; 2020-10-13)
DX: I13.0 Hypertensive heart and chronic kidney disease with heart failure and stage 1 through stage 4 chronic kidney disease, or unspecified chronic kidney disease (principal); J96.21 Acute and chronic respiratory failure with hypoxia; I50.23 Acute on chronic systolic (congestive) heart failure; R65.11 Systemic inflammatory response syndrome (SIRS) of non-infectious origin with acute organ dysfunction; E87.2 Acidosis; L97.911 Non-pressure chronic ulcer of unspecified part of right lower leg limited to breakdown of skin; E44.0 Moderate protein-calorie malnutrition; I42.9 Cardiomyopathy, unspecified; I48.0 Paroxysmal atrial fibrillation; R73.9 Hyperglycemia, unspecified; Z66 Do not resuscitate; Z51.5 Encounter for palliative care; E87.8 Other disorders of electrolyte and fluid balance, not elsewhere classified; E83.41 Hypermagnesemia; E80.6 Other disorders of bilirubin metabolism; J44.9 Chronic obstructive pulmonary disease, unspecified; K21.9 Gastro-esophageal reflux disease without esophagitis; E78.5 Hyperlipidemia, unspecified; N40.0 Benign prostatic hyperplasia without lower urinary tract symptoms; I25.10 Atherosclerotic heart disease of native coronary artery without angina pectoris; E03.9 Hypothyroidism, unspecified; D50.9 Iron deficiency anemia, unspecified; Z20.822 Contact with and (suspected) exposure to COVID-19; I07.1 Rheumatic tricuspid insufficiency; N18.31 Chronic kidney disease, stage 3a; Z88.1 Allergy status to other antibiotic agents; Z82.5 Family history of asthma and other chronic lower respiratory diseases; Z82.49 Family history of ischemic heart disease and other diseases of the circulatory system; Z80.8 Family history of malignant neoplasm of other organs or systems; I25.2 Old myocardial infarction; Z79.899 Other long term (current) drug therapy; Z79.82 Long term (current) use of aspirin; Z68.31 Body mass index [BMI] 31.0-31.9, adult